=== PATIENT | female | born 1995 | race African-American/Black ===

== ENCOUNTER 2024-08-19 08:42 | Outpatient (RCR) | payer BC, SELFPAY ==
[2024-08-19 09:34] VITALS: BP 119/80; PULSE 86
== END 2024-09-15 09:32 | disposition home or self-care (01) ==
LOC: ANHOBOP 08:42
PROVIDERS: PCP Family Medicine; Visit Provider Obstetrics & Gynecology
DX: O26.899 Other specified pregnancy related conditions, unspecified trimester (principal); Z3A.00 Weeks of gestation of pregnancy not specified
CPT/HCPCS: 59025

== ENCOUNTER 2024-09-13 11:31 | Inpatient (IN) | payer BC, SELFPAY ==
[2024-09-13] VITALS (142 sets, daily range): BP systolic 93–169; BP diastolic 46–124; PULSE 78–132; TEMP 36.6–37; O2SAT 94–100; BMI 33.2
--- OUTSIDE RECORDS SUMMARY | 2024-09-13 11:35 | XMS_ITS | Clinical Summary ---
Author Organization [facility] Address [address] [place] [address] Phone Care Team Providers Care Trousseau Consultant Name Role Phone Unavailable Primary Care Provider Unavailabl e Active Problems Problem Noted Date Diagnosed Date Microcephaly of fetus 08/11/2024 Comments Yes Encounters Date Type Department Care Team Description 09/07/2024 12:59 PM CDT - 09/07/2024 11:59 PM CDT [facility] [address] [place] [address] [address] [place] [phone] Maura Blue MD Discharge Disposition: Home or Self Care 09/07/2024 12:40 PM CDT - 09/07/2024 11:59 PM CDT Hospital [facility] [address] [place] [address] [place] [phone] Suzan Mcadams MD Discharge Disposition: Home or Self Care 08/25/2024 10:05 AM CDT - 08/25/2024 11:59 PM CDT Hospital Encounter [facility] [address] [place] [address] [address] [place] [phone] Juliano Cortez MD Discharge Disposition: Home or Self Care 08/25/2024 10:00 AM CDT - 08/25/2024 11:59 PM CDT Hospital Encounter [facility] [address] [place] [address] [address] [place] [address] Juliano Cortez MD Discharge Disposition: Home or Self Care 08/16/2024 External Device Data STL ABSTRACTION Provider, Abstract 08/11/2024 1:45 PM CDT Initial [facility] [address] [place] [phone] Juliano Cortez MD Microcephaly of fetus (Primary Dx) 08/11/2024 12:45 PM CDT - 08/11/2024 11:59 PM CDT Hospital Encounter [facility] Maternal and Ground Floor [address] [phone] Jersey Souza MD Discharge Disposition: Home or Self Care 08/10/2024 Orders Only [facility] [address] [place] [phone] Jersey Souza MD Poor growth affecting management of mother in third trimester, fetus 1 of multiple gestation (Primary Dx) 06/14/2024 External Device Data STL ABSTRACTION Provider, Abstract 06/14/2024 External Device Data STL ABSTRACTION Provider, Abstract 06/14/2024 External Device Data STL ABSTRACTION Provider, Abstract from Last 3 Months Social History Tobacco Use Types Packs/Day Years Used Date Smoking Tobacco: Never Assessed Comments Yes Sex and Gender Information Value Date Recorded Sex Assigned at Not on file Legal Sex Female 1:04 PM CDT Gender Identity Female 06/02/2024 8:52 PM CDT Sexual Orientation Not on file Last Filed Vital Signs Vital Sign Reading Time Taken Comments Blood Pressure 129/88 08/11/2024 1:42 PM CDT Pul se: 88 Pulse - - Temperature - - Respiratory Rate - - Oxygen Saturation - - Inhaled Oxygen Concentration - - Weight 81.6 kg (180 lb) 08/11/2024 1:42 PM CDT Height 160 cm (5' 3) 08/11/2024 1:42 PM CDT Body Mass Index 31.89 08/11/2024 1:42 PM CDT Plan of Treatment Health Maintenance Due Date Last Done Comments HPV VACCINES (1 - 3-dose series) 11/06/2010 DTAP/TDAP/TD VACCINES (1 - Tdap) 11/06/2014 HEPATITIS B VACCINES (1 of 3 - 19+ 3-dose series) 10/18 CERVICAL CANCER SCREENING 11/06/2016 HPV/Cotest (21-29) 11/06/2016 PAP SMEAR 11/06/2016 INFLUENZA VACCINE (#1) 2024 RSV VACCINE (60+ or ) (1 - 1-dose 75+ series) 11/06/2070 Procedures Procedure Name Priority Date/Time Associated Diagnosis Comments US MONITORING NST Routine 09/07/2024 2:03 PM CDT IUGR (intrauterine growth restriction) affecting care of mother, third trimester, fetus 1 US OB FOLLOW UP PER FETUS Routine 09/07/2024 1:02 PM CDT In vitro fertilization Small for dates affecting management of mother, third trimester, not applicable or unspecified fetus US OB FOLLOW UP PER FETUS Routine 08/25/2024 11:23 AM CDT IUGR (intrauterine growth restriction) affecting care of mother, third trimester, fetus 1 US MONITORING NST Routine 08/25/2024 11:10 AM CDT IUGR (intrauterine growth restriction) affecting care of mother, third trimester, fetus 1 US OB DETAIL SINGLE GEST Routine 08/11/2024 1:32 PM CDT IUGR (intrauterine growth restriction) affecting care of mother, third trimester, fetus 1 from Last 3 Months Results * US MONITORING NST (09/07/2024 2:03 PM CDT) Only the most recent of2 resultswithin the time period is included. Anatomical Region Laterality Modality Ultrasound 09/07/2024 1:13 PM CDT [facility] 09/07/2024 1:59 PM CDT [facility] NST ----- Pat. Name: CHERYL PRITCHETT Study Date: 09/07/2024 1:13pm Pat. 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 Para 0 MATERNAL ASSESSMENT ----- Physical Exam Initial weight 82 kg, 181 lb. Initial BMI 32.06 kg/m . Blood pressure 134/82 mmHg. Heart rate 79 bpm METHOD ----- EFM ----- Mosquera . Number of fetuses: 1 DATING ----- GA by prior assessment 37 w + 6 d NAT by prior assessment: 09/22/2024 Method of dating: Restore dating from previous exam Assigned: based on stated NAT, selected on 06/07/2024 Assigned GA 37 w + 6 d Assigned NAT: 09/22/2024 NON STRESS TEST ----- NST interpretation: reactive. Test duration 23 min. Baseline FHR 140 bpm. Baseline variability: moderate. Accelerations: Present. Decelerations: Not present. Uterine activity: present, irregular COMMENT ----- Nursing notes: Patient reports positive movement with no bleeding, leaking. Patient states that she has been feeling contractions, but not frequent enough to come in for evaluation. Patient knows to go to local hospital if she were to experience an increase in intensity or frequency of contractions. Add on with Follow up and umbilical dopplers. Patient usually has her NST done at her OB office. IMPRESSION ----- testing @ 37w 6d for FGR. -The NST is reactive. -Amniotic fluid indices are within normal limits. -Reassuring testing. Continue twice weekly testing. Delivery can be accomplished at 38-39 weeks. Thank you for allowing us to participate in the care of your patient. Procedure Note Maura Blue MD - 09/07/2024 [facility] NST ----- Pat. Name:CHERYL PRITCHETTElsaerin Date:09/07/2024 1:13pm Pat. NO: [id number] MD:JERSEY SOUZA MD [facility]1995Age:28 ----- INDICATION ----- IVF Resulting from Assistive Reproductive Technique Intrauterine Growth Restriction (IUGR) CODING ----- Diagnoses Z3A.37: Weeks of gestation O09.813: Supervision of resulting fromassisted reproductive technology Z3A.37: Weeks of gestation O36.5930: Maternal care for other known orsuspected poor growth O09.813: Supervision of resulting fromassisted reproductive technology Procedures 40020: NST/ monitoring HISTORY ----- OB History 1. Para 0 MATERNAL ASSESSMENT ----- Physical Exam Initial weight 82 kg, 181 lb. Initial BMI 32.06kg/m . Blood pressure 134/82 mmHg. Heart rate 79 bpm METHOD ----- EFM ----- Mosquera . Number of fetuses: 1 DATING ----- GA by prior [id number] w + 6 d NAT by prior assessment:09/22/2024 Method of dating:Restore dating from previous exam Assigned:based on stated NAT, selected on 06/07/2024 Assigned GA37 w + 6 d Assigned NAT:09/22/2024 NON STRESS TEST ----- NST interpretation: reactive. Test duration 23 min. Baseline FHR 140 bpm.Baseline variability: moderate. Accelerations: Present. Decelerations: Not present. Uterine activity: present, irregular COMMENT ----- Nursing notes: Patient reports positive movement with no bleeding,leaking. Patient states that she has been feeling contractions, but not frequent enough to come in for evaluation. Patientknows to go to local hospital if she were to experience an increase in intensity or frequency of contractions. Add on with Followup and umbilical dopplers. Patient usually has her NST done at her OB office. IMPRESSION ----- testing @ 37w 6d for FGR. -The NST is reactive. -Amniotic fluid indices are within normal limits. -Reassuring testing. Continue twice weekly testing. Delivery can be accomplished at 38-39 weeks. Thank you for allowing us to participate in the care of your patient. us Maura Blue MD US ORDERABLES Final Result * US OB FOLLOW UP PER FETUS (09/07/2024 1:02 PM CDT) Only the most recent of2 resultswithin the time period is included. Anatomical Region Laterality Modality Pelvis Ultrasound 09/07/2024 12:4 4 PM CDT Narrative 09/07/2024 1:39 PM CDT STL FOLLOW UP ----- Pat. Name: CHERYL PRITCHETT Study Date: 09/07/2024 12:44pm Pat. NO: [id number] Referring MD: JERSEY SOUZA MD Site: [facility] [employer]ining [employer] Operator: Rena Otoole RDMS : 1995 Age: 28 ----- INDICATION ----- IVF Resulting from Assistive Reproductive Technique Suspected Poor Growth (IUGR) CODING ----- Diagnoses Z3A.37: Weeks of gestation O09.813: Supervision of resulting from assisted reproductive technology Procedures 75354: Ultrasound, uterus, real time with image documentation, follow up, transabdominal approach per fetus 76109: Doppler velocimetry, ; umbilical artery HISTORY ----- OB History 1. Para 0 MATERNAL ASSESSMENT ----- Physical Exam Weight 82 kg. Initial weight 82 kg, 181 lb. BMI 31.89 kg/m . Initial BMI 32.06 kg/m . Weight gain 0 kg, -1 lb METHOD ----- Transabdominal ultrasound examination ----- Mosquera . Number of fetuses: 1 DATING ----- GA by prior assessment 37 w + 6 d NAT by prior assessment: 09/22/2024 Ultrasound examination on: 09/07/2024 GA by U/S based upon: AC, BPD, EFW, Femur, HC GA by U/S 34 w + 3 d NAT by U/S: 10/16/2024 Method of dating: Restore dating from previous exam Assigned: based on stated NAT, selected on 06/07/2024 Assigned GA 37 w + 6 d Assigned NAT: 09/22/2024 BIOMETRY ----- BPD 85.4 mm 34w 3d 2% Hadlock HC 299.1 mm 33w 1d <1% Hadlock AC 316.9 mm 35w 4d 11% Hadlock Femur 66.2 mm 34w 1d <1% Hadlock HC / AC 0.94 17% Nicolaides Weight Calculation: EFW 2,523 g 34w 5d 5% Hadlock EFW (lb,oz) 5 lb 9 oz EFW by Hadlock ([id number]) Extremities / Bony Struc Biometry: FL / BPD 0.78 FL / HC 0.22 FL / AC 0.21 GENERAL EVALUATION ----- Cardiac activity present. FHR 141 bpm. movements: present. Presentation: cephalic Placenta: Placental site: posterior, left Umbilical cord: Cord vessels: 3 vessel cord. Insertion site: placental insertion: normal Amniotic fluid: Amount of AF: normal amount. MVP 4.4 cm. AMARIS 14.7 cm. Q1 4.0 cm, Q2 2.7 cm, Q3 3.6 cm, Q4 4.4 cm ANATOMY ----- The following structures appear normal: Head / Neck Cranium. Heart / Thorax Diaphragm. Abdomen Stomach. Kidneys. Bladder. sex: female. GROWTH OVERVIEW ----- Exam date GA BPD (mm) HC (mm) AC (mm) FL (mm) HL (mm) EFW (g) 06/07/2024 24w 5d 57.5 10% 220.6 12% 199.7 38% 41.6 9% 662 18% 08/11/2024 34w 0d 78.2 2% 283.4 <1% 290.0 25% 63.1 11% 53.9 5% 1,998 11% 08/25/2024 36w 0d 80.9 <1% 290.1 <1% 314.9 43% 63.4 <1% 2,335 10% 09/07/2024 37w 6d 85.4 2% 299.1 <1% 316.9 11% 66.2 <1% 2,523 5% COMMENT ----- Patient's name and date of were verified by the forger helper prior to the exam IMPRESSION ----- Mosquera @ 37w 6d complicated by FGR and suspected microcephaly. - The biometry continues to LAG dates with the EFW at the 5% percentile, though there has been interval growth. - Amniotic fluid indices are within normal limits. - Limited anatomy is unremarkable. - The umbilical artery Doppler velocimetry is within normal limits. The patient had an NST following the ultrasound; please see separate report for details. Delivery can be accomplished at 38-39 weeks. Thank you for allowing us to participate in the care of this patient. Procedure Note Maura Blue MD - 09/07/2024 STL FOLLOW UP ----- Pat. Name:Amanda PRITCHETT Date:09/07/2024 12:44pm Pat. NO: [id number] MD:JERSEY SOUZA MD [facility]Rena Otoole RDMS :1995Age:28 ----- INDICATION ----- IVF Resulting from Assistive Reproductive Technique Suspected Poor Growth (IUGR) CODING ----- Diagnoses Z3A.37: Weeks of gestation O09.813: Supervision of resulting fromassPurchasing Platform reproductive technology Procedures 30107: Ultrasound, uterus, real time withimage documentation, follow up, transabdominal approach per fetus 84841: Doppler velocimetry, ; umbilicalartery HISTORY ----- OB History 1. Para 0 MATERNAL ASSESSMENT ----- Physical Exam Weight 82 kg. Initial weight 82 kg, 181 lb. BMI31.89 kg/m . Initial BMI 32.06 kg/m . Weight gain 0 kg, -1 lb METHOD ----- Transabdominal ultrasound examination ----- Mosquera . Number of fetuses: 1 DATING ----- GA by prior [id number] w + 6 d NAT by prior assessment:09/22/2024 Ultrasound examination on:09/07/2024 GA by U/S based upon:AC, BPD, EFW, Femur, HC GA by U/S34 w + 3 d NAT by U/S:10/16/2024 Method of dating:Restore dating from previous exam Assigned:based on stated NAT, selected on 06/07/2024 Assigned GA37 w + 6 d Assigned NAT:09/22/2024 BIOMETRY ----- BPD 85.4 mm 34w 3d 2%Hadlock HC 299.1 mm 33w 1d <1%Hadlock AC 316.9 mm 35w 4d 11%Hadlock Femur 66.2 mm 34w 1d <1%Hadlock HC / AC 0.94 17%Nicolaides Weight Calculation: EFW 2,523 g 34w 5d5% Hadlock EFW (lb,oz) 5 lb 9 oz EFW by Hadlock ([id number]) Extremities / Bony Struc Biometry: FL / BPD 0.78 FL / HC 0.22 FL / AC 0.21 GENERAL EVALUATION ----- Cardiac activity present. FHR 141 bpm. movements: present.Presentation: cephalic Placenta: Placental site: posterior, left Umbilical cord: Cord vessels: 3 vessel cord. Insertion site: placentalinsertion: normal Amniotic fluid: Amount of AF: normal amount. MVP 4.4 cm. AMARIS 14.7 cm. Q14.0 cm, Q2 2.7 cm, Q3 3.6 cm, Q4 4.4 cm ANATOMY ----- The following structures appear normal: Head / Neck Cranium. Heart / Thorax Diaphragm. Abdomen Stomach. Kidneys. Bladder. sex: female. GROWTH OVERVIEW ----- Exam date GA BPD (mm) HC (mm) AC (mm) FL(mm) HL (mm) EFW (g) 06/07/2024 24w 5d 57.5 10% 220.6 12% 199.7 38%41.6 9% 662 18% 08/11/2024 34w 0d 78.2 2% 283.4 <1% 290.0 25%63.1 11% 53.9 5% 1,998 11% 08/25/2024 36w 0d 80.9 <1% 290.1 <1% 314.9 43%63.4 <1% 2,335 10% 09/07/2024 37w 6d 85.4 2% 299.1 <1% 316.9 11%66.2 <1% 2,523 5% COMMENT ----- Patient's name and date of were verified by the forger helper prior tothe exam IMPRESSION ----- Mosquera @ 37w 6d complicated by FGR and suspectedmicrocephaly. - The biometry continues to LAG dates with the EFW at the 5%percentile, though there has been interval growth. - Amniotic fluid indices are within normal limits. - Limited anatomy is unremarkable. - The umbilical artery Doppler velocimetry is within normal limits. The patient had an NST following the ultrasound; please see separatereport for details. Delivery can be accomplished at 38-39 weeks. Thank you for allowing us to participate in the care of this patient. us Suzan Mcadams MD US ORDERABLES Edited Resu lt - Final * US OB DETAIL SINGLE GEST (08/11/2024 1:32 PM CDT) Anatomical Region Laterality Modality Pelvis Ultrasound 08/11/2024 12:5 2 PM CDT Narrative 08/11/2024 2:13 PM CDT STL COMP ----- Pat. Name: CHERYL PRITCHETT Study Date: 08/11/2024 12:52pm Pat. NO: [id number] Referring MD: JERSEY SOUZA MD Site: [facility] [employer] Operator: Johnna Kauffman RDMS : 1995 Age: 28 ----- INDICATION ----- IVF Resulting from Assistive Reproductive Technique Intrauterine Growth Restriction (IUGR) CODING ----- Diagnoses Z3A.34: Weeks of gestation O09.813: Supervision of resulting from assisted reproductive technology Z3A.34: Weeks of gestation O36.5930: Maternal care for other known or suspected poor growth O09.813: Supervision of resulting from assisted reproductive technology Procedures 53243: Ultrasound, uterus, real time with image documentation, and maternal evaluation plus detailed anatomic examination, transabdominal approach HISTORY ----- OB History 1. Para 0 MATERNAL ASSESSMENT ----- Physical Exam Initial weight 82 kg, 181 lb. Initial BMI 32.06 kg/m METHOD ----- Transabdominal ultrasound examination ----- Mosquera . Number of fetuses: 1 DATING ----- GA by prior assessment 34 w + 0 d NAT by prior assessment: 09/22/2024 Ultrasound examination on: 08/11/2024 GA by U/S based upon: AC, BPD, EFW, Femur, HC GA by U/S 32 w + 0 d NAT by U/S: 10/06/2024 Method of dating: Restore dating from previous exam Assigned: based on stated NAT, selected on 06/07/2024 Assigned GA 34 w + 0 d Assigned NAT: 09/22/2024 BIOMETRY ----- BPD 78.2 mm 31w 3d 2% Hadlock HC 283.4 mm 31w 1d <1% Hadlock AC 290.0 mm 33w 0d 25% Hadlock Femur 63.1 mm 32w 4d 11% Hadlock Humerus 53.9 mm 31w 3d 5% Charmaine HC / AC 0.98 17% Nicolaides Weight Calculation: EFW 1,998 g 32w 1d 11% Hadlock EFW (lb,oz) 4 lb 6 oz EFW by Hadlock ([id number]) Extremities / Bony Struc Biometry: FL / BPD 0.81 FL / HC 0.22 FL / AC 0.22 GENERAL EVALUATION ----- Cardiac activity present. FHR 153 bpm. movements: present. Presentation: cephalic Placenta: Placental site: posterior Umbilical cord: Cord vessels: 3 vessel cord. Insertion site: placental insertion: normal Amniotic fluid: Amount of AF: normal amount. MVP 4.8 cm. AMARIS 15.8 cm. Q1 4.8 cm, Q2 4.3 cm, Q3 3.0 cm, Q4 3.7 cm ANATOMY ----- Head / Neck Lateral ventricles: previously seen. Cerebellum: previously seen. Cisterna magna: previously seen. Face Profile: previously seen. Heart / Thorax RVOT view: previously seen. LVOT view: previously seen. The following structures appear normal: Head / Neck Cranium. Choroid plexus. Midline falx. Cavum septi pellucidi. Thalami. Face Lips. Nose. Orbits. Heart / Thorax 4-chamber view. 3-vessel view. 7-hhmcqf-irezmqn view. Situs. Aortic arch view. Ductal arch view. Superior vena cava. Inferior vena cava. Cardiac rhythm. Diaphragm. Abdomen Abdominal wall. Stomach. Kidneys. Bladder. Extremities / Arms. Legs. Skeleton The following structures could not be adequately visualized: Face Palate. Spine Cervical spine. Thoracic spine. Lumbar spine. Sacral spine. Extremities / Hands. Feet. Skeleton sex: female. DOPPLER ----- Umbilical Artery: PI 0.82 39% Veronica RI 0.57 39% Veronica PS 53.11 cm/s 68% Ebbing ED 22.45 cm/s TAmax 37.31 cm/s 75% Ebbing MD 22.02 cm/s S / D 2.34 35% Veronica Impression: Performed but not charged. GROWTH OVERVIEW ----- Exam date GA BPD (mm) HC (mm) AC (mm) FL (mm) HL (mm) EFW (g) 06/07/2024 24w 5d 57.5 10% 220.6 12% 199.7 38% 41.6 9% 662 18% 08/11/2024 34w 0d 78.2 2% 283.4 <1% 290.0 25% 63.1 11% 53.9 5% 1,998 11% COMMENT ----- Patient's name and date of were verified by the forger helper before the exam IMPRESSION ----- Viable at 34 weeks 0 days gestation complicated by IVF and maternal obesity. Patient had low risk NIPT. Ultrasound and care consult requested due to poor growth Cephalic presentation biometry is consistent low normal growth Estimated weight is at the 11th percentile with abdominal circumference at 25th percentile Head circumference is measuring less than the 1st percentile; Z-score is between -2 to -3 SD No structural malformations identified within the limitations of the late ultrasound Intracranial anatomy appears normal Amniotic fluid volume is normal Posterior placenta with normal placental cord insertion appreciated; placenta is not low-lying Normal umbilical artery Doppler studies Ultrasound findings discussed with the patient and her partner. We discussed the growth is in the low normal range. Head circumference is at the lower end of the expected range. Given normal intracranial anatomy this is likely a normal variant. Discussed limitations of late ultrasound. Please see consult note. Recommendations: - Start twice-weekly modified biophysical profiles. Patient is currently doing testing at her OB provider's office - Follow-up ultrasound with nonstress test scheduled in 2 weeks - Based upon current ultrasound findings, delivery is recommended between 39 to 40 weeks gestation ADDENDUM ----- RETRIGGER Procedure Note Juliano Cortez MD - 08/11/2024 ST[facility] COMP ----- Pat. Name:CHERYL PRITCHETTStudy Date:08/11/2024 12:52pm Pat. NO: [id number] MD:JERSEY SOUZA MD [facility]Johnna Kauffman RDMS :1995Age:28 ----- INDICATION ----- IVF Resulting from Assistive Reproductive Technique Intrauterine Growth Restriction (IUGR) CODING ----- Diagnoses Z3A.34: Weeks of gestation O09.813: Supervision of resulting fromassisted reproductive technology Z3A.34: Weeks of gestation O36.5930: Maternal care for other known orsuspected poor growth O09.813: Supervision of resulting fromassisted reproductive technology Procedures [id number]: Ultrasound, uterus, real time withimage documentation, and maternal evaluation plus detailed anatomic examination,transabdominal approach HISTORY ----- OB History 1. Para 0 MATERNAL ASSESSMENT ----- Physical Exam Initial weight 82 kg, 181 lb. Initial BMI 32.06kg/m METHOD ----- Transabdominal ultrasound examination ----- Mosquera . Number of fetuses: 1 DATING ----- GA by prior [id number] w + 0 d NAT by prior assessment:09/22/2024 Ultrasound examination on:08/11/2024 GA by U/S based upon:AC, BPD, EFW, Femur, HC GA by /2 w + 0 d NAT by U/S:10/06/2024 Method of dating:Restore dating from previous exam Assigned:based on stated NAT, selected on 06/07/2024 Assigned GA34 w + 0 d Assigned NAT:09/22/2024 BIOMETRY ----- BPD 78.2 mm 31w 3d2% Hadlock HC 283.4 mm 31w 1d<1% Hadlock AC 290.0 mm 33w 0d25% Hadlock Femur 63.1 mm 32w 4d11% Hadlock Humerus 53.9 mm 31w 3d5% Charmaine HC / AC 0.98 17%Nicolaides Weight Calculation: EFW 1,998 g 32w 1d11% Hadlock EFW (lb,oz) 4 lb 6 oz EFW by Hadlock ([id number]) Extremities / Bony Struc Biometry: FL / BPD 0.81 FL / HC 0.22 FL / AC 0.22 GENERAL EVALUATION ----- Cardiac activity present. FHR 153 bpm. movements: present.Presentation: cephalic Placenta: Placental site: posterior Umbilical cord: Cord vessels: 3 vessel cord. Insertion site: placentalinsertion: normal Amniotic fluid: Amount of AF: normal amount. MVP 4.8 cm. AMARIS 15.8 cm. Q14.8 cm, Q2 4.3 cm, Q3 3.0 cm, Q4 3.7 cm ANATOMY ----- Head / Neck Lateral ventricles: previously seen. Cerebellum:previously seen. Cisterna magna: previously seen. Face Profile: previously seen. Heart / Thorax RVOT view: previously seen. LVOT view: previouslyseen. The following structures appear normal: Head / Neck Cranium. Choroid plexus. Midline falx. Cavum septipellucidi. Thalami. Face Lips. Nose. Orbits. Heart / Thorax 4-chamber view. 3-vessel view. 7-lsltxa-ixrzzpontmb. Situs. Aortic arch view. Ductal arch view. Superior vena cava. Inferior vena cava. Cardiac rhythm. Diaphragm. Abdomen Abdominal wall. Stomach. Kidneys. Bladder. Extremities / Arms. Legs. Skeleton The following structures could not be adequately visualized: Face Palate. Spine Cervical spine. Thoracic spine. Lumbar spine.Sacral spine. Extremities / Hands. Feet. Skeleton sex: female. DOPPLER ----- Umbilical Artery: PI 0.82 39%Vernoica RI 0.57 39%Veronica PS 53.11 cm/s 68%Ebbing ED 22.45 cm/s TAmax 37.31 cm/s 75%Ebbing MD 22.02 cm/s S / D 2.34 35%Veronica Impression: Performed but not charged. GROWTH OVERVIEW ----- Exam date GA BPD (mm) HC (mm) AC (mm) FL(mm) HL (mm) EFW (g) 06/07/2024 24w 5d 57.5 10% 220.6 12% 199.7 38%41.6 9% 662 18% 08/11/2024 34w 0d 78.2 2% 283.4 <1% 290.0 25%63.1 11% 53.9 5% 1,998 11% COMMENT ----- Patient's name and date of were verified by the forger helper beforethe exam IMPRESSION ----- Viable at 34 weeks 0 days gestation complicated by IVF andmaternal obesity. Patient had low risk NIPT. Ultrasound and care consult requested due to poor growth Cephalic presentation biometry is consistent low normal growth Estimated weight is at the 11th percentile with abdominalcircumference at 25th percentile Head circumference is measuring less than the 1st percentile; Z-score isbetween -2 to -3 SD No structural malformations identified within the limitations of the lateultrasound Intracranial anatomy appears normal Amniotic fluid volume is normal Posterior placenta with normal placental cord insertion appreciated;placenta is not low-lying Normal umbilical artery Doppler studies Ultrasound findings discussed with the patient and her partner. Wediscussed the growth is in the low normal range. Head circumference is at the lower end of the expected range. Given normalintracranial anatomy this is likely a normal variant. Discussed limitations of late ultrasound. Please see consult note. Recommendations: - Start twice-weekly modified biophysical profiles. Patient is currentlydoing testing at her OB provider's office - Follow-up ultrasound with nonstress test scheduled in 2 weeks - Based upon current ultrasound findings, delivery is recommended [id number] to 40 weeks gestation ADDENDUM ----- RETRIGGER Jersey Souza MD ORDERABLES Edited Result - Final from Last 3 Months Insurance [facility] BLUE ACCESS CHOICE [facility]
--- OUTSIDE RECORDS SUMMARY | 2024-09-13 11:35 | XMS_ITS | Continuity of Care Document ---
Author Organization [facility], [facility] Address [address] [place] [address] [place] [address] Care Team Providers Care Field Producer Name Role Phone NATHALIE RIVERA Primary Care Provider Assessment No assessment recorded. Plan of Treatment Reminders Order Date Submit Date Provider Last Modified By Organization Details Last Modified Time Details Appointments NST 2024 08:30A M NST SCHEDULE Not available Not available Not available INDUCTI ON 2024 04:00P M JERSEY SOUZA MD Not available Not available Not available U/S OB BPP 2024 08:30A M ULTRASOUND Not available Not available Not available NST 2024 09:00A M NST SCHEDULE Not available Not available Not available OB ROUTINE 2024 09:45A M JERSEY SOUZA MD Not available Not available Not available Lab None recorde d. Referral None recorde d. Procedures None recorde d. Surgeries None recorde d. Imaging non-str ess test 2024 025 [id number] [place], [address], [place], [address], 09/13/2024 11:59:58 Medication Orders None recorde d. Patient TargetsNo targets recorded. Patient InstructionsNo instructions recorded. Reason for Referral None Reported. Results Created Date Observation Date Name Description Value Unit Range Abnormal Flag Note LastModifiedBy Organization Detail LastModifiedTime 03/17/19 25 03/17/2024 [UNIT Y] ANEUP LOIDY NIPT fraction 14.3% normal Not Available [facility] [address] [facility], [place], [address], 03/17/2024 00:01:59 03/17/19 25 03/17/2024 [UNIT Y] ANEUP LOIDY NIPT 22Q11.2 microdeletio n LOW RISK <1 in 10,000 normal Not Available [facility] [address] [facility], [place], [address], 03/17/2024 00:01:59 03/17/19 25 03/17/2024 [UNIT Y] ANEUP LOIDY NIPT sex chromosome aneuploidy NOT DETECT ED normal Not Available [facility] [address] [facility], [place], [address], 03/17/2024 00:01:59 03/17/19 25 03/17/2024 [UNIT Y] ANEUP LOIDY NIPT monosomy X LOW RISK <1 in 10,000 normal Not Available [facility] [address] [facility], [place], [address], 03/17/2024 00:01:59 03/17/19 25 03/17/2024 [UNIT Y] ANEUP LOIDY NIPT trisomy 13 LOW RISK <1 in 10,000 normal Not Available [facility] [address] [place], [address], 03/17/2024 00:01:59 03/17/19 25 03/17/2024 [UNIT Y] ANEUP LOIDY NIPT trisomy 18 LOW RISK <1 in 10,000 normal Not Available [facility] [address] [place], [address], 03/17/2024 00:01:59 03/17/19 25 03/17/2024 [UNIT Y] ANEUP LOIDY NIPT trisomy 21 LOW RISK <1 in 10,000 normal Not Available [facility] [address] [place], [address], 03/17/2024 00:01:59 03/17/19 25 03/17/2024 [UNIT Y] ANEUP LOIDY NIPT sex FEMALE normal Not Available [facility] [address], [place], [address], 03/17/2024 00:01:59 03/17/19 25 03/17/2024 [UNIT Y] ANEUP LOIDY NIPT gestation SINGLE TON normal Not Available [facility] [address], [place], [address], 03/17/2024 00:01:59 03/17/19 25 03/17/2024 [UNIT Y] ANEUP LOIDY NIPT for detailed report, see pdf See PDF normal Not Available [facility] [address], [place], [address], 03/17/2024 00:01:59 03/29/19 25 03/29/2024 [UNIT Y] PAPITO Damon sickle cell disease/beta -thalassemia /hemoglobino pathies carrier screen NEGATI VE normal Not Available [facility] [address], [place], [address], 03/29/2024 18:43:30 03/29/19 25 03/29/2024 [UNIT Y] PAPITO Damon alpha-thalas semia carrier screen NEGATI VE normal Not Available [facility] [address], [place], [address], 03/29/2024 18:43:30 03/29/19 25 03/29/2024 [UNIT Y] PAPITO Damon cystic fibrosis carrier screen NEGATI VE normal Not Available [facility] [address], [place], [address], 03/29/2024 18:43:30 03/29/19 25 03/29/2024 [UNIT Y] PAPITO Damon spinal muscular atrophy carrier screen NEGATI VE 2 SMN1 copies , SNP not presen t normal Not Available [facility] [address], [place], [address], 03/29/2024 18:43:30 03/29/19 25 03/29/2024 [UNIT Y] PAPITO GIO Damon for detailed report, see pdf See PDF normal Not Available [facility] [address], [place], [address], 03/29/2024 18:43:30 07/09/19 25 07/08/2024 HEMAT OCRIT (HCT) HCT 34.2 % (based on docume nted legal sex) 34.0-4 5.0 Not Available [facility] (Lab) [address], [place], [address], 07/09/2024 09:47:08 07/09/19 25 07/08/2024 HEMOG LOBIN (HGB) HGB 11.0 g/dL (based on docume nted legal sex) 11.6-1 5.4 low Not Available [facility] (Lab) [address], [place], [address], 07/09/2024 09:47:09 07/09/19 25 07/08/2024 GTT - GESTA LUIS L ELEONORA Damon, ACOG OB glucose, 1 hour screen 97 mg/dL 70-135 Not Available [facility] (Lab) [address], [place], [address], 07/09/2024 09:47:09 07/09/19 25 07/08/2024 HIV 1/2 ANTIG EN/AN TIBOD Y, REFLE X CONFI RMATI ON HIV antigen/anti body Nonrea ctive nonrea ctive HIV-1 antig en and HIV-1 /HIV- 2 antib odies were not detec cynthia. No labor atory evide nce of HIV infec tion. Not Available [facility] (Lab) [address], [place], [address], 07/09/2024 09:47:10 07/09/19 25 07/08/2024 RPR SCREMohamud N, REFLE X TITER /CONF IRMAT ION RPR qualitative Nonrea ctive nonrea ctive Not Available [facility] (Lab) [address], [place], [address], 07/09/2024 09:47:10 08/23/19 25 08/22/2024 CULTU RE: GROUP B STREP SCREE N, REFLE X SUSCE PTIBI LITY result report SEE RESULT S BELOW Test: Cultu re: Group B Strep , Refle x Susce ptibi lity ([facility]/ [facility]/K [facility] ) Speci men Sourc e: Vagin a/Rec delaney Speci men Type: Vagin al/Re ctal Speci men Date: 025 1048 Resul t Date: 2024 1411 Resul t Statu s: Final resul t Abnor mal: No Resul ting Lab: [facility] [address] [facility] [address] Tel: CULTU RE ----- ----- ----- --- No Group B strep isola cynthia at 2 days (jaylene ctive broth enhan cemen t) Not Available [facility] (Lab) [address], [place], [address], 08/25/2024 15:16:22 05/18/19 25 05/17/2024 US, obste tric, 2nd or 3rd trime ster No observ ation record ed. [facility] [address], [place], [address], 05/17/2024 14:14:14 05/18/19 25 05/17/2024 US, obste tric, 2nd or 3rd trime ster No observ ation record ed. [email or web address] [address], [place], [address], 05/18/2024 00:23:10 06/07/19 25 06/06/2024 US, obste tric, follo w-up No observ ation record ed. [email or web address] [address], [place], [address], 06/15/2024 09:14:42 06/07/19 25 06/06/2024 US, obste tric, follo w-up No observ ation record ed. [facility] [address], [place], [address], 06/06/2024 17:13:39 06/08/19 25 06/07/2024 US, obste tric, follo w-up No observ ation record ed. [facility] [address], [address], 06/22/2024 09:34:19 06/08/19 25 06/07/2024 US, obste tric, follo w-up No observ ation record ed. [email or web address] [place] [address], [address], 07/07/2024 16:10:27 06/08/19 25 06/07/2024 US, obste tric, follo w-up No observ ation record ed. [email or web address], [place], [address], 06/21/2024 09:15:52 07/09/19 25 07/08/2024 US, obste tric, follo w-up No observ ation record ed. [facility] [address], [place], [address], 07/08/2024 14:01:25 07/09/19 25 07/08/2024 US, obste tric, follo w-up No observ ation record ed. [address], [place], [address], 07/14/2024 11:23:30 08/06/19 25 08/05/2024 US, obste tric, follo w-up No observ ation record ed. [address], [place], [address], 09/01/2024 21:40:56 08/06/19 25 08/05/2024 US, obste tric, follo w-up No observ ation record ed. [facility] [address], [place], [address], 08/05/2024 17:29:01 08/06/19 25 08/05/2024 US, obste tric, bioph ysica l profi le + non-s tress test No observ ation record ed. [facility] [address], [place], [address], 08/05/2024 17:29:11 08/06/19 25 08/05/2024 US, doppl er, umbil ical arter y veloc imetr y No observ ation record ed. [facility] [address], [place], [address], 08/05/2024 17:29:20 08/09/19 25 08/05/2024 non-s tress test No observ ation record ed. [email or web address] [place] [address], [place], [address], 08/08/2024 09:38:26 08/09/19 25 08/05/2024 non-s tress test No observ ation record ed. [email or web address] [place] [address], [place], [address], 08/08/2024 11:51:50 08/12/19 25 08/11/2024 US, obste tric, follo w-up No observ ation record ed. [email or web address] [facility] [address] [facility], [place], [address], 08/15/2024 09:25:46 08/12/19 25 08/11/2024 US, obste tric, follo w-up No observ ation record ed. [email or web address] [facility] [address] [facility] [address] , [place], [address], 08/15/2024 09:29:32 08/17/19 25 08/16/2024 US, obste tric, bioph ysica l profi le + non-s tress test No observ ation record ed. [facility] [address], [place], [address], 08/16/2024 18:12:16 08/17/19 25 08/16/2024 US, doppl er, umbil ical arter y veloc imetr y No observ ation record ed. [facility] [address], [place], [address], 08/16/2024 18:12:26 08/17/19 25 08/16/2024 US, obste tric, bioph ysica l profi le + non-s tress test No observ ation record ed. [email or web address] [facility] [address] [facility], [place], [address], 08/17/2024 09:43:52 08/17/19 25 08/16/2024 non-s tress test No observ ation record ed. [email or web address] [place] [address], [place], [address], 08/16/2024 19:10:33 08/20/19 25 08/19/2024 non-s tress test No observ ation record ed. [address], [place], [address], 08/24/2024 07:39:39 08/23/19 25 08/22/2024 non-s tress test No observ ation record ed. [facility] [address], [place], [address], 08/22/2024 13:47:45 08/26/19 25 08/25/2024 US, obste tric, follo w-up No observ ation record ed. [email or web address] [facility] [place] [address] [facility], [place], [address], 08/30/2024 15:25:37 08/31/19 25 08/30/2024 non-s tress test No observ ation record ed. [email or web address] [place] [address], [place], [address], 08/30/2024 12:15:54 09/03/19 25 09/02/2024 US, obste tric, bioph ysica l profi le + non-s tress test No observ ation record ed. [email or web address] [place] [address], [place], [address], 09/02/2024 17:49:19 09/03/19 25 09/02/2024 US, obste tric, bioph ysica l profi le + non-s tress test No observ ation record ed. [email or web address] [address], [place], [address], 09/02/2024 17:25:54 09/03/19 25 09/02/2024 non-s tress test No observ ation record ed. [email or web address] [place] [address], [place], [address], 09/02/2024 11:46:32 09/08/19 25 09/07/2024 US, obste tric, follo w-up No observ ation record ed. [email or web address] [facility] [address] [facility], [place], [address], 09/10/2024 10:59:12 09/08/19 25 09/07/2024 US, obste tric, follo w-up No observ ation record ed. [facility] [address] [facility], [place], [address], 09/10/2024 10:58:58 09/10/19 25 09/09/2024 US, obste tric, bioph ysica l profi le + non-s tress test No observ ation record ed. [email or web address] [place] [address], [place], [address], 09/09/2024 10:09:05 09/10/19 25 09/09/2024 US, doppl er, umbil ical arter y veloc imetr y No observ ation record ed. [email or web address] [place] [address], [place], [address], 09/09/2024 10:09:18 09/10/19 25 09/09/2024 US, obste tric, bioph ysica l profi le + non-s tress test No observ ation record ed. [email or web address] [address] [facility], [place], [address], 09/09/2024 11:45:39 09/10/19 25 09/09/2024 non-s tress test No observ ation record ed. [email or web address] [place] [address], [place], [address], 09/09/2024 11:11:12 09/14/19 25 09/13/2024 non-s tress test No observ ation record ed. [place] [address], [place], [address], 09/13/2024 11:39:39 09/14/19 non-s tress test No observ ation record ed. [email or web address] [place] [address] [place], [address], 09/13/2024 11:43:17 Result Notes None recorded. Problems Name Problem SNOMED Code Status Onset Date Resolution Date Notes Provider Name and Address Organization Details Recorded Time IVF - in-vitro fertiliz ation pregnanc y 22056186081 102 Active echo order faxed to [facility] 4/4 echo wnl antenata l testing to start at 36wks Nataly Barry [facility] 5 11:22:56 IVF - in-vitro fertiliz ation pregnanc y 91017632534 102 Active echo order faxed to [facility] 4/4 echo wnl antenata l testing to start at 36wks Nataly Barry [facility] 5 11:22:56 Jocelyn keys [id number] Completed 201610/10/2020 Jocelyn keys;Record ed Elsewher e: No Locat ion: [facility] S ource: EHR Emergency Medical Technician yang: N Practi ce ID: [id number] Padilla lable Time: 03:30:00 PM Angela Hodges [facility] 09:52:28 Finding of regulari ty of menstrua l cycle Completed 201610/10/2020 Irregula r bleeding ;Recorde d Elsewher e: No Locat ion: [facility] S ource: EHR Emergency Medical Technician yang: N Practi ce ID: [id number] Padilla lable Time: 02:45:00 PM Angela Hodges [facility] 09:52:25 Uses combined oral contrace ption 194935327 Completed 201610/10/2020 Encounte r for surveill ance of contrace ptive pills;Pr actice ID: [id number] Angela Hodges [facility] 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 09:52:34 Finding of general energy 450454122 Completed 201710/10/2020 Other fatigue; Recorded Elsewher e: No Locat ion: Tamiswapnil [facility] Beckieti ce ID: [id number] Padilla lable Time: 08:30:00 AM Angela barron, [facility] 09:52:22 Screenin g for malignan t neoplasm of cervix Completed 201710/10/2020 Screenin g for malignan t neoplasm s of the cervix;R ecorded Elsewher e: No Locat ion: Susy [facility] yang: N Beckieti ce ID: 0001 Padilla lable Time: 08:30:00 AM Angela barron, [facility] 09:52:30 Body mass index 25-29 - overweig [id number] Completed 201710/10/2020 Body mass index (BMI) 27.0-27. 9, adult;Re corded Elsewher e: No Locat ion: Susy [facility] S ource: EHR Emergency Medical Technician yang: N Beckieti ce ID: [id number] Padilla lable Time: 08:30:00 AM Angela barron [facility] 09:52:[address] Concept Completed 201810/10/2020 Encntr for routine child health exam w/o abnormal findings ;Recorde d Elsewher e: No Locat ion: Susy [facility] S ource: EHR Emergency Medical Technician yang: N Beckieti ce ID: 0001 Padilla lable Time: 11:30:00 AM Angela barron [facility] 1 09:52:32 Pregnanc y 81524955 Active 2024 Trinhsofia Simons beatrice, [facility] 5 16:44:48 Placenta circumva llata 6210324 Active 2024 32wk growth Nataly Barry beatrice [facility] 5 17:57:31 Venous garces 093724108 Active 2024 Nataly barron, [facility] 5 17:57:40 Disorder of pregnanc y 334892737 Active 2024 IUGR MFM referral faxed to Cheyanne Edward [facility] Growth/B PP/NST Consult 08/11/24 Nataly Barry beatrice [facility] 5 09:41:57 growth restrict ion 59648734 Active 2024 EFW 6% at 38 weeks, 38-39 week inductio n per MFM schedule d for inductio n 09/15 PM Nataly Barry [facility] 5 11:34:58 Problem Notes None recorded. Procedures Surgical History Date Name Laterality Status Provider Name and Address Organization Details Recorded Time 4 [facility] 10:50:46 4 [facility]/08[facility]2024 10:50:26 4 Date of Last Pap Smear completed Cecilia Hutchinson [facility] 02/26/2024 12:31:47 1 extraction of wisdom tooth completed Angela [facility] 07/22/2024 11:59:14 6 excision of ganglion cyst completed Angela [facility] 10/04/2019 11:44:42 5 excision of ganglion cyst completed Agnela Hodges [facility] 10/04/2019 11:44:39 Imaging Results None recorded. Procedure Notes None recorded. Medical Equipment None Reported. Allergies No known drug allergies Medications Name Sig Start Date Stop Date Status Note LastModified by Organization Details LastModified Time amoxicill in 500 mg capsule 10/10 completed Not Available Not Available Not Available medroxypr ogesteron e 10 mg tablet TAKE 1 TABLET BY MOUTH EVERY DAY FOR 10 DAYS 02/25 completed Not Available Not Available Not Available azithromy elle 250 mg tablet 02/25 completed Not Available Not Available Not Available hydrocodo ne 5 mg-acetam inophen 325 mg tablet 10/10 completed Not Available Not Available Not Available metronida zole 0.75 % (37.5 mg/5 gram) vaginal gel Insert 1 applicat orful every day by vaginal route for 5 days. 06/20 completed Not Available Not Available Not Available Pregnyl 10,000 unit intramusc ular solution 02/25 completed Not Available Not Available Not Available progester one 50 mg/mL intramusc ular oil 02/25 completed Not Available Not Available Not Available progester one micronize d 200 mg capsule TAKE ONE CAPSULE BY MOUTH TWICE DAILY DIRECTED 02/25 completed Not Available Not Available Not Available estradiol 2 mg tablet TAKE 1 TABLET BY MOUTH THREE TIMES DAILY 02/25 completed Not Available Not Available Not Available hydroxyzi ne HCl 25 mg tablet TAKE 1 TABLET BY MOUTH THREE TIMES DAILY NEEDED FOR ANXIETY OR SLEEP active Not Available Not Available No t Available ergocalci ferol (vitamin D2) 1,250 mcg (50,000 unit) capsule TAKE 1 CAPSULE BY MOUTH WEEKLY FOR 12 WEEKS. HAVE BLOOD WORK REPEATED . 11/14 completed Not Available Not Available Not Available letrozole 2.5 mg tablet Take 2 tablets every day by oral route for 5 days. 02/25 completed Not Available Not Available Not Available scopolami ne 1 mg over 3 days transderm al patch APPLY 1 PATCH EVERY 72 HOURS FOR EXCESSIV E SALIVATI ON 07/08 completed Not Available Not Available Not Available ondansetr on 4 mg disintegr ating tablet DISSOLVE 1 TABLET ON TOP OF THE TONGUE FOUR TIMES DAILY DIRECTED 07/08 completed Not Available Not Available Not Available metformin ER 500 mg tablet,ex tended release 24 hr Take 1 tablet every day by oral route. 2024 active Not Available Not Available Not Avai lable leuprolid e 1 mg/0.2 mL subcutane ous kit 02/25 completed Not Available Not Available Not Available Ortho Tri-Cycle n (28) 0.18 mg(7)/0.2 15mg(7)/0 .25 mg(7)-0.0 35 mg tablet TAKE 1 TABLET BY ORAL ROUTE EVERY DAY 10/10 completed Prescrib kenia Sharif e: No Locat ion: Susy berman [facility] odify By: sailaja [email or web address] DateTime : 05/23/19 08:30:00 AM Not Available Not Available Not Available Vaniqa 13.9 % topical cream 10/11 completed Not Available Not Available Not Available ganirelix 250 mcg/0.5 mL subcutane ous syringe 02/25 completed Not Available Not Available Not Available Ovidrel 250 mcg/0.5 mL subcutane ous syringe 02/25 completed Not Available Not Available Not Available escitalop sergio 5 mg tablet TAKE 1 TABLET BY MOUTH EVERY DAY active Not Available Not Available No t Available Menopur 75 unit subcutane ous solution 02/25 completed Not Available Not Available Not Available Follistim AQ 900 unit/1.08 mL subcutane ous cartridge 02/25 completed Not Available Not Available Not Available estradiol 02/25 completed Not Available Not Available Not Available Vitamins active Not Available Not Available Not Available folic acid active Not Available Not Available Not Available Vitamin D3 02/25 completed Not Available Not Available Not Available metformin 02/25 completed Not Available Not Available Not Available Baby Aspirin active Not Available Not Available Not Available Progester one in Oil 02/25 completed Not Available Not Available Not Available Azurette (28) 0.15 mg-0.02 mg (21)/0.01 mg (5) tablet TAKE 1 TABLET BY MOUTH ONCE DAILY 06/20 completed Not Available Not Available Not Available Estarylla 0.25 mg-0.035 mg tablet TAKE 1 TABLET BY MOUTH DAILY 02/25 completed Not Available Not Available Not Available Vitals Date Recorded Body weight Body mass index (BMI) Body height Systolic And Diastolic Provider Name and Address Organization Details Last Updated DateTime 09/13/2024 74281.142 67 g 34.4 kg/m2 158.75 cm 159/98 mm[Hg] Yumi Garrisont [facility] 09/13/2024 09:41:46 Social History Question Answer Notes LastModified by Organizat ion Details LastModified Time Tobacco Smoking Status Never Smoker Alnea Cheng beatrice, [facility] 01/12/2023 16:34:14 Do You Have An Advance Directive? No [email or web address] Information n ot available 10/10/2020 If You Are , What Was Your Level Of Alcohol Consumption Prior To ? Occasional [email or web address] Information not available 08/05/2024 How Many Years Have You Consumed Alcohol? 4 [email or web address] Information not available 10/11/2021 Are You Blind Or Do You Have Difficulty Seeing? No [email or web address] Information n ot available 10/10/2020 What Is Your Level Of Caffeine Consumption? None [email or web address] Information not available 10/10/2020 How Much Tobacco Do You Chew? None [email or web address] Information not available 02/26/2024 In The 14 Days Before Symptom Onset, Have You Had Close Contact With A Laboratory-confirm ed COVID-19 While That Case Was Ill? No [email or web address] Information n ot available 10/10/2020 In The 14 Days Before Symptom Onset, Have You Had Close Contact With A Person Who Is Under Investigation For COVID-19 While That Person Was Ill? No [email or web address] Information not available 10/10/2020 Have You Been To An Area Known To Be High Risk For COVID-19? No Information not available 10/10/2020 Are You Deaf Or Do You Have Serious Difficulty Hearing? No [email or web address] Information not available 10/10/2020 What Type Of Diet Are You Following? REGULAR [email or web address] Information n ot available 10/10/2020 Which Illicit Or Recreational Drugs Have You Used? None [email or web address] Information not available 01/12/2023 What Is The Highest Grade Or Level Of School You Have Completed Or The Highest Degree You Have Received? FD02358-5 [email or web address] Information not available 10/11/2021 Are There Any Guns Present In Your Home? No [email or web address] Information not available 10/10/2020 What Was The Date Of Your Most Recent Tobacco Screening? 08/05/2024 [email or web address] Information not available 08/05/2024 Do You Use Protection During Sex? No [email or web address] Information not available 10/10/2020 Do You Use Your Seat Belt Or Car Seat Routinely? Yes [email or web address] Information not available 10/10/2020 Are You Sexually Active? Yes [email or web address] Information not available 04/15/2024 Do You Have Smoke And Carbon Monoxide Detectors In Your Home? Yes [email or web address] Information not available 10/10/2020 How Much Tobacco Do You Smoke? No [id number] Information not available 12/20/2019 Do You Use Sunscreen Routinely? Yes [email or web address] Information not available 10/10/2020 Have You Used IV Drugs? No [email or web address] Information not available 10/10/2020 Do You Have Difficulty Walking Or Climbing Stairs? No [email or web address] Information not available 01/12/2023 Sex: Unknown Functional Status Question Answer Note LastModified by Organizat ion Details LastModified Time Do you use any illicit or recreational drugs? No [email or web address] Information not available 10/10/2020 What is your level of alcohol consumption? None [email or web address] Information not available 08/05/2024 Do you or have you ever used smokeless tobacco? Never used smokeless tobacco [email or web address] Information not available 01/12/2023 Are you currently employed? Yes Information not available 04/15/2024 Are you able to walk? YESWOREST [email or web address] Information not available 10/10/2020 Are you able to care for yourself independently? 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 No [email or web address] Information not available 01/12/2023 Do you or have you ever used e-cigarettes or vape? Never used electronic cigarettes [email or web address] Information not available 01/12/2023 What is your exercise level? Moderate [email or web address] Information not available 10/11/2021 Mental Status Question Answer Note LastModified by Organization D etails LastModified Time Do you feel stressed (tense, restless, nervous, or anxious, or unable to sleep at night)? [id number] [email or web address] Information not available 12/16/2022 Family History Relationship Description Onset Age of this Age Resolved Age Notes LastModified by Organization Details LastModified Time Mother Hypercholest erolemia [email or web address] Not available 2022 16:40:38 Mother Hypertensive disorder [email or web address] Not available 2022 16:40:38 Father Hypercholest erolemia [email or web address] Not available 2022 16:40:38 Father Hypertensive disorder [email or web address] Not available 2022 16:40:38 Sister Female infertility [email or web address] Not available 09:28:36 Notes:Father: Hypertension, High cholesterol Mother: Hypertension, High cholesterol Sister: Infertility Medical History Condition Response Allergies (Food, seasonal, environmental ) N Other Y Breast Cancer N Drug/Latex Allergies/Reactions N Blood Transfusion N Dermatologic Disorders N Lung Disease N Defects or Inherited Disease N Breast Problem N Gestational Diabetes N Hematologic disorders N Anesthesia Complications N History of STI N Deep Vein Thrombosis N Polycystic ovary syndrome N Anxiety Disorder Y Autoimmune disease N Arthritis N Infertility N Polyps N Acid Reflux (GERD) N History of abnormal pap N Cancer N Stroke N Varicosities N Neurologic/Epilepsy N Endometriosis N High Cholesterol N Headaches N Fibromyalgia N Kidney Disease N Heart Problems N Kidney or Bladder Problems N Thyroid Problems N GI Problems N Eating Disorder N Anemia N Art (IVF or FET) Y Psychiatric Illness N Ovarian Cancer N Diabetes N Pulmonary (TB, Asthma) N Hepatitis/Liver Disease N No Past Medical History N Eczema N Urinary Tract Infection N Abuse/Domestic Violence N Asthma N Trauma/Violence N Depression/ depression N Heart Disease N Pre-Eclampsia N Hypertension N Osteoporosis N Thrombophilias N Gynecological History Statement/Question Response Date of Last Mammogram Flow Moderate Date of LMP 12/20/2023 N Was last menstrual period normal Y STIs/STDs N Date of control 04/22/2022 Date of Last Colonoscopy Condoms Desired Control Method Condoms Abnormal Pap N On BCP's at Conception? N HPV Vaccine N Duration of Flow (days) 3 Current Control Method Are cycles usually normal N Frequency of Cycle (Q days) 36 Sexually Active? Y Menses Monthly Y Date of DEXA bone scan Age of first menstrual cycle 13 Date of Last Pap Smear 08/19/2023 Sexual Problems? N LMP Definite N Obstetrics History GPAL:G 1 P 0 0 0 0 Type Value Living 0 Total 1 Past Encounters Encounter ID Performer Location Encounter Start Date Encounter Closed Date Diagnosis/Indication Diagnosis SNOMED-CT Code Diagnosis ICD10 Code Diagnosis Note [id number] JERSEY SOUZA MD [place] [address],[place] [address] 08/16/2024 16:58:50 08/17/2024 03:53:32 care: obstetric risk 185205500 O09.813 [id number] MD [place] [address],[place] [address] 08/16/2024 16:59:18 08/16/2024 17:22:57 Poor growth affecting management 839518351 O36.5990 O09.813 Z3A.34 [id number] JERSEY SOUZA MD [place] [address],[place] [address] 08/16/2024 16:59:38 08/16/2024 22:46:17 IVF - in-vitro fertilization [id number] 2102 O09.819 - echo at 24 weeks normal Disorder of 17 8964750 O36.5990 - EFW 11% at [facility], repeat 08/25 scheduled Gestation period, 34 weeks 37401392 Z3A.34 [id number] MD Sajan [place] [address],[place] [address] 08/22/2024 10:33:38 08/22/2024 11:32:04 care: obstetric risk [id number] O09.813 [id number] MD Sajan [place] [address],[place] [address] 08/22/2024 10:34:10 08/22/2024 11:50:22 IVF - in-vitro fertilization 1279455988 2 O09.819 - echo at 24 weeks normal Disorder of 17 6001988 O36.5990 - EFW 11% at [facility], repeat 08/25 scheduled Gestation period, 35 weeks 32286443 Z3A.35 [id number] MD Sajan [place] [address],[place] [address] 08/30/2024 10:27:58 08/30/2024 12:20:38 Conceived by in vitro fertilization 076572368 Z78.9 [id number] MD Sajan [place] [address],[place] [address] 09/02/2024 09:35:24 09/02/2024 10:05:23 IVF - in-vitro fertilization [id number] 2 O09.819 O36.5990 Z3A.37 - echo at 24 weeks normal [id number] MD Sajan [place] [address],[place] [address] 09/02/2024 09:36:37 09/02/2024 12:00:57 Conceived by in vitro fertilization 784537471 Z78.9 [id number] JESREY SOUZA MD [place] [address],[place] [address] 09/02/2024 09:36:45 09/02/2024 11:08:45 Disorder of 444019589 O36.5990 - EFW 10% at [facility] on 08/25- repeat in 2 weeks with M Placenta circumvallata 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 O43.112 Gestation period, 37 weeks 25437519 Z3A.37 [id number] MD Sajan [place] [address],[place] [address] 09/09/2024 09:34:04 09/09/2024 10:09:46 care status 088922788 O36.5930 O09.813 O43.113 Z3A.38 [id number] MD Sajan [place] [address],[place] [address] 09/09/2024 09:34:23 09/09/2024 11:15:37 care: obstetric risk [id number] O09.813 [id number] JERSEY SOUZA MD [place] [address],[place] [address] 09/09/2024 09:34:37 09/09/2024 11:15:31 growth restriction 45874069 O36.5990 Gestation period, 38 weeks 96849500 Z3A.38 [id number] JERSEY SOUZA MD [place] [address],[place] [address] 09/13/2024 09:28:32 09/13/2024 11:59:58 IVF - in-vitro fertilization 2745001320 2102 O09.819 - echo at 24 weeks normal Health Concerns Section Related Observation LastModified by Organization Detai ls LastModified Time None Recorded Concern Status LastModified by Organization Details LastModified Time None Recorded Payers Encounter Date Sequence Insurance Name Policy Number Policy Amato Covered Member ID Amato Member ID Guarantor Name 09/13/2024 1 [place] [id number] Sarah A Shreyas [id number] Sarah A Shreyas OBGyn Episode Ob Episode Information Episode Created Date Number of Fetuses Patient Bloodtype Patient rh Status Prepregnancy Weight lbs Domestic Partner Domestic Partner Phone Father Name Fine Unhairer Status 03/15/19 25 1 O Positive OPEN Fetus Data First Name Last Name Admitted to NICU Weight (g) Sex Living Outcome Pediatric Complications Fetus ID Race Codes Race Delivery Type [id number] Problems Problem Notes testing @ 36wks Problem Name Start Date End Date Resolution Snomed Code Not e Venous garces 06/13/2024 [id number] Disorder of 08/09/2024 5450043 03 IUGR [facility] Growth/BPP/NST Consult 08/11/24 Placenta circumvallata 06/13/2024 315492 0 32wk growth IVF - in-vitro fertilization [id number] [facility] echo wnl testing to start at 36wks growth restriction 09/09/2024 [id number] EFW 6% at 38 weeks, 38-39 week induction per [facility] scheduled for induction 09/15 PM Nikita Calculation Initial Nikita Date Initial Exam Date Initial Exam Provider Initial Ultrasound Date Last Menstrual Period Date Ultra Sound Weeks Gestation 09/22/2024 03/15/2024 02/23/2024 12/20/2023 9 Eighteen To Twenty Week Nikita Update Ultra Sound Date Fundal Height At Umbil Quickening Date Ultra Sound Latest Weeks Gestation Final Nikita Confirmed By Final Nikita Confirmed Date Final Nikita Date Ultra Sound Latest Days Gestation 0 [email or web address] 03/15/2024 09/23/19 25 0 Pre- Flowsheet Flowsheet Date 03/15/2024 Castañeda Score Blood Edema Fundus Height Fundus Units Glucose Ketones Leukocytes Nitrite Labor Signs Protein Cervic Dilation Cervic Effacement Cervic Station Type Weight in lbs Pre/Post Dialysis Refused Weight 165.117470388352 BP Diastolic BP Location Tested BP Systolic BP Type 81 L arm 118 sitting Fetus Heart Rate Present A Present Fetus Movement Comments Patient presents to [facility] care. IVF , dated by embryo transfer. Discussed echo for IVF around 24 weeks. otherwise uncomplicated. No nausea or cramping. NT/NB wnl 03/10, desires NIPT, drawn at time of US. New OB labs wnl. RTC 4 weeks for routine care. Flowsheet Date 04/15/2024 Castañeda Score Blood Edema Fundus Height Fundus Units Glucose Ketones Leukocytes Nitrite Labor Signs Protein Cervic Dilation Cervic Effacement Cervic Station neg none Type Weight in lbs Pre/Post Dialysis Refused 166.888935603142 BP Diastolic BP Location Tested BP Systolic BP Type 82 L arm 132 sitting Fetus Heart Rate Present Fetus Movement A Increased Comments Flowsheet Date 04/18/2024 Castañeda Score Blood Edema Fundus Height Fundus Units Glucose Ketones Leukocytes Nitrite Labor Signs Protein Cervic Dilation Cervic Effacement Cervic Station neg none Type Weight in lbs Pre/Post Dialysis Refused Weight 168.387410252278 BP Diastolic BP Location Tested BP Systolic BP Type 82 L arm 127 sitting Fetus Heart Rate Present A 155 Fetus Movement A Yes Comments Patient c/o of slight consta nt headaches. Discussed vitamin B2. Having ptyalism, discussed conservative measures, will try scop patch as well. LR female NIPT! Discussed anatomy US. RTC 2 weeks. Flowsheet Date 05/17/2024 Castañeda Score Blood Edema Fundus Height Fundus Units Glucose Ketones Leukocytes Nitrite Labor Signs Protein Cervic Dilation Cervic Effacement Cervic Station Type Weight in lbs Pre/Post Dialysis Refused BP Diastolic BP Location Tested BP Systolic BP Type Fetus Heart Rate Present Fetus Movement Comments Flowsheet Date 05/17/2024 Castañeda Score Blood Edema Fundus Height Fundus Units Glucose Ketones Leukocytes Nitrite Labor Signs Protein Cervic Dilation Cervic Effacement Cervic Station none Type Weight in lbs Pre/Post Dialysis Refused Weight 168.074279713137 BP Diastolic BP Location Tested BP Systolic BP Type 85 L arm 122 sitting Fetus Heart Rate Present A Present Fetus Movement A Yes Comments Good movement. No cram ping or bleeding. Ptyalism improved with scop patch. Anatomy normal, need RVOT and profile views. EFW 31%. Repeat in 4 weeks. Circumvallate placenta, repeat growth US at 32 weeks. RTC 4 weeks. Flowsheet Date 06/06/2024 Castañeda Score Blood Edema Fundus Height Fundus Units Glucose Ketones Leukocytes Nitrite Labor Signs Protein Cervic Dilation Cervic Effacement Cervic Station Type Weight in lbs Pre/Post Dialysis Refused BP Diastolic BP Location Tested BP Systolic BP Type Fetus Heart Rate Present Fetus Movement Comments Flowsheet Date 06/14/2024 Castañeda Score Blood Edema Fundus Height Fundus Units Glucose Ketones Leukocytes Nitrite Labor Signs Protein Cervic Dilation Cervic Effacement Cervic Station neg none Type Weight in lbs Pre/Post Dialysis Refused Weight 177.737817621076 BP Diastolic BP Location Tested BP Systolic BP Type 79 125 Fetus Heart Rate Present Fetus Movement A Yes Comments Patient is having elevated h eart rate, anxiety jamie in the evening.refer to denilson tucker for follow up anxiety. reviewed mfm us, plan US here for follow up growth borderline, discussed IVF antenataltesting, plan GCT at next visit as well. precautions and education +FM Flowsheet Date 07/08/2024 Castañeda Score Blood Edema Fundus Height Fundus Units Glucose Ketones Leukocytes Nitrite Labor Signs Protein Cervic Dilation Cervic Effacement Cervic Station Type Weight in lbs Pre/Post Dialysis Refused BP Diastolic BP Location Tested BP Systolic BP Type Fetus Heart Rate Present Fetus Movement Comments Flowsheet Date 07/08/2024 Castañeda Score Blood Edema Fundus Height Fundus Units Glucose Ketones Leukocytes Nitrite Labor Signs Protein Cervic Dilation Cervic Effacement Cervic Station neg none Type Weight in lbs Pre/Post Dialysis Refused Weight 177.711824441423 BP Diastolic BP Location Tested BP Systolic BP Type 74 111 Fetus Heart Rate Present Fetus Movement A Yes Comments saw fuentes for consult, us to day reviewed f/u in 4 weeks, gct today precautions and education f/u 2 weeks Flowsheet Date 07/22/2024 Castañeda Score Blood Edema Fundus Height Fundus Units Glucose Ketones Leukocytes Nitrite Labor Signs Protein Cervic Dilation Cervic Effacement Cervic Station neg none Type Weight in lbs Pre/Post Dialysis Refused Weight 174.226299940548 BP Diastolic BP Location Tested BP Systolic BP Type 81 122 Fetus Heart Rate Present Fetus Movement A Yes Comments Patient is having some nause a and vomiting. +FM, seeing fuentes and doing better on medication. us for growth next visit, nausea has returned, call for preadmit, education and precautions, schedule for testing Flowsheet Date 08/05/2024 Castañeda Score Blood Edema Fundus Height Fundus Units Glucose Ketones Leukocytes Nitrite Labor Signs Protein Cervic Dilation Cervic Effacement Cervic Station Type Weight in lbs Pre/Post Dialysis Refused BP Diastolic BP Location Tested BP Systolic BP Type Fetus Heart Rate Present Fetus Movement Comments Flowsheet Date 08/05/2024 Castañeda Score Blood Edema Fundus Height Fundus Units Glucose Ketones Leukocytes Nitrite Labor Signs Protein Cervic Dilation Cervic Effacement Cervic Station Type Weight in lbs Pre/Post Dialysis Refused Weight 181.629814644068 BP Diastolic BP Location Tested BP Systolic BP Type 82 127 Fetus Heart Rate Present Fetus Movement Comments Flowsheet Date 08/05/2024 Castañeda Score Blood Edema Fundus Height Fundus Units Glucose Ketones Leukocytes Nitrite Labor Signs Protein Cervic Dilation Cervic Effacement Cervic Station neg trace neg Type Weight in lbs Pre/Post Dialysis Refused 181.143981245726 BP Diastolic BP Location Tested BP Systolic BP Type 82 127 Fetus Heart Rate Present Fetus Movement A Yes Comments pt is having BH contractions and swelling. has preadmission scheduled. +FM reviewed us with dr. souza and mel parra US and consult efw 3%, will continue weekly visits here. bpp 11/25 Flowsheet Date 08/16/2024 Castañeda Score Blood Edema Fundus Height Fundus Units Glucose Ketones Leukocytes Nitrite Labor Signs Protein Cervic Dilation Cervic Effacement Cervic Station Type Weight in lbs Pre/Post Dialysis Refused BP Diastolic BP Location Tested BP Systolic BP Type Fetus Heart Rate Present Fetus Movement Comments Flowsheet Date 08/16/2024 Castañeda Score Blood Edema Fundus Height Fundus Units Glucose Ketones Leukocytes Nitrite Labor Signs Protein Cervic Dilation Cervic Effacement Cervic Station Type Weight in lbs Pre/Post Dialysis Refused BP Diastolic BP Location Tested BP Systolic BP Type Fetus Heart Rate Present Fetus Movement Comments Flowsheet Date 08/16/2024 Castañeda Score Blood Edema Fundus Height Fundus Units Glucose Ketones Leukocytes Nitrite Labor Signs Protein Cervic Dilation Cervic Effacement Cervic Station Type Weight in lbs Pre/Post Dialysis Refused Weight 184.574581922085 BP Diastolic BP Location Tested BP Systolic BP Type 82 L arm 128 sitting Fetus Heart Rate Present A 145 Fetus Movement A Yes Comments Good movement. No cram ping or bleeding. EFW 11% at [facility], repeat scan scheduled 08/25. Starting 2x weekly testing per [facility] recommendations. BPP 11/25 with normal UADs today. Discussed plan. Discussed GBS for next visit. Would like EIL at 39 weeks if growth remains stable. RTC for testing as scheduled. Flowsheet Date 08/22/2024 Castañeda Score Blood Edema Fundus Height Fundus Units Glucose Ketones Leukocytes Nitrite Labor Signs Protein Cervic Dilation Cervic Effacement Cervic Station Type Weight in lbs Pre/Post Dialysis Refused BP Diastolic BP Location Tested BP Systolic BP Type Fetus Heart Rate Present Fetus Movement Comments Flowsheet Date 08/22/2024 Castañdea Score Blood Edema Fundus Height Fundus Units Glucose Ketones Leukocytes Nitrite Labor Signs Protein Cervic Dilation Cervic Effacement Cervic Station neg none Type Weight in lbs Pre/Post Dialysis Refused Weight 185.382827219326 BP Diastolic BP Location Tested BP Systolic BP Type 83 L arm 129 sitting Fetus Heart Rate Present A Present Fetus Movement A Yes Comments Good movement. No cram ping or bleeding. Seeing MFM on , repeat US. GBS collected today. Declined SVE. NST reactive. RTC 1 week. Flowsheet Date 08/30/2024 Castañeda Score Blood Edema Fundus Height Fundus Units Glucose Ketones Leukocytes Nitrite Labor Signs Protein Cervic Dilation Cervic Effacement Cervic Station Type Weight in lbs Pre/Post Dialysis Refused BP Diastolic BP Location Tested BP Systolic BP Type Fetus Heart Rate Present Fetus Movement Comments Flowsheet Date 09/02/2024 Castañeda Score Blood Edema Fundus Height Fundus Units Glucose Ketones Leukocytes Nitrite Labor Signs Protein Cervic Dilation Cervic Effacement Cervic Station Type Weight in lbs Pre/Post Dialysis Refused BP Diastolic BP Location Tested BP Systolic BP Type Fetus Heart Rate Present Fetus Movement Comments Flowsheet Date 09/02/2024 Castañeda Score Blood Edema Fundus Height Fundus Units Glucose Ketones Leukocytes Nitrite Labor Signs Protein Cervic Dilation Cervic Effacement Cervic Station Type Weight in lbs Pre/Post Dialysis Refused BP Diastolic BP Location Tested BP Systolic BP Type Fetus Heart Rate Present Fetus Movement Comments Flowsheet Date 09/02/2024 Castañeda Score Blood Edema Fundus Height Fundus Units Glucose Ketones Leukocytes Nitrite Labor Signs Protein Cervic Dilation Cervic Effacement Cervic Station Type Weight in lbs Pre/Post Dialysis Refused Weight 185.233520184690 BP Diastolic BP Location Tested BP Systolic BP Type 90 L arm 134 sitting Fetus Heart Rate Present A Present Fetus Movement A Yes Comments Doing well, baby active. No contractions, LOF or VB. MFM US last week showed EFW 10%, AC 43%, recommend 39 week induction. Discussed possible microcephaly with MFM, no further workup at this time. BPP 11/25 today. GBS neg. EIL scheduled 09/15. RTC 1 week. Flowsheet Date 09/09/2024 Castañeda Score Blood Edema Fundus Height Fundus Units Glucose Ketones Leukocytes Nitrite Labor Signs Protein Cervic Dilation Cervic Effacement Cervic Station Type Weight in lbs Pre/Post Dialysis Refused BP Diastolic BP Location Tested BP Systolic BP Type Fetus Heart Rate Present Fetus Movement Comments Flowsheet Date 09/09/2024 Castañeda Score Blood Edema Fundus Height Fundus Units Glucose Ketones Leukocytes Nitrite Labor Signs Protein Cervic Dilation Cervic Effacement Cervic Station Type Weight in lbs Pre/Post Dialysis Refused BP Diastolic BP Location Tested BP Systolic BP Type Fetus Heart Rate Present Fetus Movement Comments Flowsheet Date 09/09/2024 Castañeda Score Blood Edema Fundus Height Fundus Units Glucose Ketones Leukocytes Nitrite Labor Signs Protein Cervic Dilation Cervic Effacement Cervic Station Type Weight in lbs Pre/Post Dialysis Refused Weight 190.825321664322 BP Diastolic BP Location Tested BP Systolic BP Type 86 L arm 129 sitting Fetus Heart Rate Present A Present Fetus Movement A Yes Comments Good movement. No cram ping or bleeding. EFW 6% at MFM yesterday, ok to keep 09/15 induction per MFM. NST reactive today. RTC next week for testing. Flowsheet Date 09/13/2024 Castañeda Score Blood Edema Fundus Height Fundus Units Glucose Ketones Leukocytes Nitrite Labor Signs Protein Cervic Dilation Cervic Effacement Cervic Station Type Weight in lbs Pre/Post Dialysis Refused 191.796879017423 BP Diastolic BP Location Tested BP Systolic BP Type 98 L arm 159 sitting Fetus Heart Rate Present Fetus Movement A Yes Comments Menstrual History Last Menstrual Date Menses Monthly On Bcp Conception Prior Menses Frequency Hcg Plus Date Menarche Onset Age 1112/20/2023 Delivery Information Delivery Date Delivery Type Labor Anesthesia Weeks Gestation Incision Type Labor Labor Length Hrs Delivered By Post Complications Tubal Sterilization Discharge Date Comments Discharge Information Feeding Method Contraceptive Method Maternal HG B and HCT Levels
--- OUTSIDE RECORDS SUMMARY | 2024-09-13 11:36 | XMS_ITS | Continuity of Care Document ---
Author Organization [facility] Address [address] [place] [address] [place] [address] Phone Care Team Providers Care Airline Pilot Flight Instructor Name Role Phone Jennifer Jim Unavailable Unavailable Procedures Procedure Date Eye Exam & Treatment Refraction Eye Exam & Treatment Refraction Eye Exam, New Patient Refraction Advance Directives Directive Yes / No Effective Date File Name No Information Encounters Encounter Description Practice Location Reason(s) For Visit Diagnoses Date Provider Providers Copied on Encounter [facility], [address] [place] [address] [address], [place], [place], [id number], tel:[phone] [facility] No Information [phone] 0 Diandra Lopes [address] , [address], [place], [place], [facility], . tel:[phone] [facility], [address] [place] [address] [address], [place], [place], [id number], [place] tel:[phone] [facility] No Information 9200 8 Diandra Lopes [address] , [address], [place], [place], [facility], . tel:[phone] [facility], [address] [place] [address] [address], [place], [place], [id number], tel:[phone] [facility] No Information 2-200 7 Diandra Milligann. [address] , [address], [place], [address], [place]. tel:[phone] Referring Provider: Maura Kee MD, [address] [place], [address]. tel:[phone] Family History Family Member Type Diagnosis Age At Onset No Information Payers Payer name Insurance type Covered green party ID Codey pérez(s) [employer] Plan [id number] Social History Type Description Quantity Date Captured Comments Sex Female Smoking Status No Information Chief Complaint And Reason For Visit No Information Reason For Referral Reason For Referral No Information History Of Present Illness Encounter Date Complaint History Of Prese nt Illness No Information Functional Status Date Functional Assessmen t No Information Instructions Date Instruction Additional Infor mation No Information Assessments Type Assessment Date No Information Patient Care Teams Name Effective Dates (start - stop) Status Members No Information
--- OUTSIDE RECORDS SUMMARY | 2024-09-13 11:36 | XMS_ITS | Data Portability ---
Author Organization [facility], [facility] Address [address] [place] [address] [place] [address] Care Team Providers Care Fundraising Officer Name Role Phone NATHALIE RIVERA Primary Care [...] d. Imaging non-str ess test 2024 025 [email or web address] [place], [place], [address], 09/13/2024 11:59:58 non-str ess test 2024 025 [email or web address] [address], [place], [address], 09/12/2024 03:06:01 US, obstetr ic, biophys ical profile + non-str ess test 2024 025 [email or web address] [place], [place], [address], 09/09/2024 11:42:44 US, doppler , umbilic al artery velocim etry 2024 025 [place], [place], [address], 09/09/2024 11:42:44 US, obstetr ic, biophys ical profile + non-str ess test 2024 025 [place], [place], [address], 09/02/2024 15:53:14 Medication Orders None recorde d. Patient TargetsNo targets recorded. Patient InstructionsNo instructions recorded. Reason for Referral None Reported. Results Created Date Observation Date Name Description Value Unit Range Abnormal Flag Note LastModifiedBy Organization Detail LastModifiedTime 08/23/1908/22/2024 CULTU RE: GROUP B STREP SCREE N, REFLE X SUSCE PTIBI LITY result report SEE RESULT S BELOW Test: Cultu re: Group B Strep , Refle x Susce ptibi lity ([facility] ) Speci men Sourc e: Vagin a/Rec delaney Speci men Type: Vagin al/Re ctal Speci men Date: 1048 Resul t Date: 2024 1411 Resul t Statu s: Final resul t Abnor mal: No Resul ting Lab: [facility] [address] [facility] [address] Tel: CULTU RE ----- ----- ----- --- No Group B strep isola cynthia at 2 days (jaylene ctive broth enhan cemen t) Not Available [facility] (Lab) [address] [facility] [facility], [place], [address], 08/25/2024 15:16:22 08/06/19 25 08/05/2024 US, obste tric, follo w-up No observ ation record ed. [email or web address] [address] [facility], [place], [address], 09/01/2024 21:40:56 08/06/19 25 08/05/2024 US, obste tric, follo w-up No observ ation record ed. [facility] [address], [place], [address], 08/05/2024 17:29:01 08/06/19 25 08/05/2024 US, obste tric, bioph ysica l profi le + non-s tress test No observ ation record ed. [facility] [address], [place], [address], 08/05/2024 17:29:11 08/06/19 25 08/05/2024 US, doppl er, umbil ical arter y veloc imetr y No observ ation record ed. [facility] [address], [place], [address], 08/05/2024 17:29:20 08/09/19 25 08/05/2024 non-s tress test No observ ation record ed. [email or web address] [place] [address], [place], [address], 08/08/2024 09:38:26 08/09/19 25 08/05/2024 non-s tress test No observ ation record ed. [email or web address] [place] [address], [place], [address], 08/08/2024 11:51:50 08/12/19 25 08/11/2024 US, obste tric, follo w-up No observ ation record ed. [email or web address] [facility] [address] [facility], [place], [address], 08/15/2024 09:25:46 08/12/19 25 08/11/2024 US, obste tric, follo w-up No observ ation record ed. [email or web address] [facility] [place] [address] [facility], [place], [address], 08/15/2024 09:29:32 08/17/19 25 08/16/2024 US, obste tric, bioph ysica l profi le + non-s tress test No observ ation record ed. [facility] [address], [place], [address], 08/16/2024 18:12:16 08/17/1908/16/2024 US, doppl er, umbil ical arter y veloc imetr y No observ ation record ed. [facility] [address], [place], [address], 08/16/2024 18:12:26 08/17/19 25 08/16/2024 US, obste tric, bioph ysica l profi le + non-s tress test No observ ation record ed. [email or web address] [facility] [address] [facility], [place], [address], 08/17/2024 09:43:52 08/17/1908/16/2024 non-s tress test No observ ation record ed. [email or web address] [place] [address], [place], [address], 08/16/2024 19:10:33 08/20/19 25 08/19/2024 non-s tress test No observ ation record ed. [place] [id number], [place], [address], 08/24/2024 07:39:39 08/23/19 25 08/22/2024 non-s tress test No observ ation record ed. ISAI [place] [address], [place], [address], 08/22/2024 13:47:45 08/26/19 25 08/25/2024 US, obste tric, follo w-up No observ ation record ed. [email or web address] [facility] [address] [facility], [place], [address], 08/30/2024 15:25:37 08/31/19 25 08/30/2024 non-s tress test No observ ation record ed. concetta [place] [address], [place], [address], 08/30/2024 12:15:54 09/03/19 25 09/02/2024 US, obste tric, bioph ysica l profi le + non-s tress test No observ ation record ed. [email or web address] [place] [address], [place], [address], 09/02/2024 17:49:19 09/03/19 25 09/02/2024 US, obste tric, bioph ysica l profi le + non-s tress test No observ ation record ed. [email or web address] [address] [facility], [place], [address], 09/02/2024 17:25:54 09/03/19 25 09/02/2024 non-s tress test No observ ation record ed. [email or web address] [place] [address], [place], [address], 09/02/2024 11:46:32 09/08/19 25 09/07/2024 US, obste tric, follo w-up No observ ation record ed. [email or web address] [facility] [address], [place], [address], 09/10/2024 10:59:12 09/08/19 25 09/07/2024 US, obste tric, follo w-up No observ ation record ed. [facility] [address] [facility], [place], [address], 09/10/2024 10:58:58 09/10/19 25 09/09/2024 US, obste tric, bioph ysica l profi le + non-s tress test No observ ation record ed. [email or web address] [place] [address], [place], [address], 09/09/2024 10:09:05 09/10/19 25 09/09/2024 US, doppl er, umbil ical arter y veloc imetr y No observ ation record ed. [email or web address] [place] [address], [place], [address], 09/09/2024 10:09:18 09/10/19 25 09/09/2024 US, obste tric, bioph ysica l profi le + non-s tress test No observ ation record ed. [email or web address] [address], [place], [address], 09/09/2024 11:45:39 09/10/19 25 09/09/2024 non-s tress test No observ ation record ed. [email or web address] [place] [address], [place], [address], 09/09/2024 11:11:12 09/14/19 25 09/13/2024 non-s tress test No observ ation record ed. [place] [address], [place], [address], 09/13/2024 11:39:39 09/14/19 25 non-s tress test No observ ation record ed. [email or web address] [place] [address], [place], [address], 09/13/2024 11:43:17 Result Notes None recorded. Problems Name Problem SNOMED Code Status Onset Date Resolution Date Notes Provider Name and Address Organization Details Recorded Time IVF - in-vitro fertiliz ation pregnanc y 28305221920 102 Active echo order faxed to [facility] 4/4 echo wnl antenata l testing to start at 36wks Ntaaly Barry [facility] 5 11:22:56 IVF - in-vitro fertiliz ation pregnanc y 40824549234 102 Active echo order faxed to [facility] 4/4 echo wnl antenata l testing to start at 36wks Nataly Barry [facility] 5 11:22:56 Hirsutis m [id number] Completed 201610/10/2020 Hirsutis m;Record ed Elsewher e: No Locat ion: [facility] S ource: EHR Core Winder yang: N Practi ce ID: 0001 Padilla lable Time: 03:30:[address] [facility] 09:52:28 Finding of regulari ty of menstrua l cycle Completed 201610/10/2020 Irregula r bleeding ;Recorde d Elsewher e: No [facility] S ource: EHR Core Winder yang: N Practi ce ID: 0001 Padilla lable Time: 02:45:[address] [facility] 09:52:25 Uses combined oral contrace ption 290223185 Completed 201610/10/2020 Encounte r for surveill ance of contrace ptive pills;Pr actice ID: 0001 Angela Hodges null, [facility] 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 09:52:34 Finding of general energy 506141212 Completed 201710/10/2020 Other fatigue; Recorded Elsewher e: No [facility] S ource: EHR Core Winder yang: N Beckieti ce ID: 0001 Padilla lable Time: 08:30:00 AM Angela Hodges [facility], [facility] 09:52:22 Screenin g for malignan t neoplasm of cervix Completed 201710/10/2020 Screenin g for malignan t neoplasm s of the cervix;R ecorded Elsewher e: No [facility]at [facility] S ource: EHR Core Winder yang: N Beckieti ce ID: 0001 Padilla lable Time: 08:30:00 AM Angela Hodges beatrice, [facility] 09:52:30 Body mass index 25-29 [facility] [id number] Completed 201710/10/2020 Body mass index (BMI) 27.0-27. 9, adult;Re corded Elsewher e: No Locat ion: [facility] S ource: EHR Core Winder yang: N Beckieti ce ID: 0001 Padilla lable Time: 08:30:00 AM Angela Hodges [facility], [facility] 09:52:[address] Concept Completed 201810/10/2020 Encntr for routine child health exam w/o abnormal findings ;Recorde d Elsewher e: No Locat ion: Susy berman [facility] S ource: EHR Core Winder yang: N Practi ce ID: 0001 Padilla lable Time: 11:30:00 AM Angela barron [facility] 1 09:52:32 Pregnanc y 97618041 Active 2024 Trinh Simons beatrice, [facility] 5 16:44:48 Placenta circumva llata 1609731 Active 2024 32wk growth Nataly barron [facility] 5 17:57:31 Venous garces 362895391 Active 2024 Nataly Barry beatrice [facility] 5 17:57:40 Disorder of pregnanc y 313913914 Active 2024 IUGR MFM referral faxed to Cheyanne Edward [facility] Growth/B PP/NST Consult 08/11/24 Nataly barron [facility] 5 09:41:57 growth restrict ion 96972499 Active 2024 EFW 6% at 38 weeks, 38-39 week inductio n per MFM schedule d for inductio n 7 PM Nataly Barry beatrice [facility] 5 11:34:58 Problem Notes None recorded. Procedures Surgical History Date Name Laterality Status Provider Name and Address Organization Details Recorded Time 4 embryo transfer completed Angela Hodges [facility] 07/08/2024 10:50:46 4 oocyte recovery completed Angela Hodges [facility] 07/08/2024 10:50:26 4 Date of Last Pap Smear completed Cecilia Hutchinson [facility] 02/26/2024 12:31:47 1 extraction of wisdom tooth completed Angela [facility] 07/22/2024 11:59:14 6 [facility] ganglion cyst [facility] 10/04/2019 11:44:42 5 excision of ganglion cyst completed Angela [facility] 10/04/2019 11:44:39 Imaging Results None recorded. [...] ORAL ROUTE EVERY DAY 10/10 completed Prescrib ed Kole e: No Locat ion: [facility] odify By: sailaja gregg DateTime : 05/23/19 18 08:30:00 AM Not Available Not Available Not [...] Available Not Available Vitals Date Recorded Body height Body mass index (BMI) Body weight Systolic And Diastolic Provider Name and Address Organization Details Last Updated DateTime 09/02/2024 158.75 cm 33.3 kg/m2 58576.59 g 134/90 mm[Hg] [facility] 09/02/2024 10:52:36 Date Recorded Body height Body mass index (BMI) Body weight Systolic And Diastolic Provider Name and Address Organization Details Last Updated DateTime 09/09/2024 158.75 cm 34.2 kg/m2 86698.55 g 129/86 mm[Hg] [facility] 09/09/2024 10:50:53 Date Recorded Body height Provider Name an d Address Organization Details Last Updated DateTime 09/09/2024 158.75 cm HERBERT Brea [facility] 09/09/2024 11:09:50 Date Recorded Body weight Body mass index (BMI) Body height Systolic And Diastolic Provider Name and Address Organization Details Last Updated DateTime 09/13/2024 24851.142 67 g 34.4 kg/m2 158.75 cm 159/98 mm[Hg] Yumi Flores [facility] 09/13/2024 09:41:46 Social History Question Answer Notes LastModified by Organizat ion Details LastModified Time Tobacco Smoking Status Never Smoker Alena barron [facility] 01/12/2023 16:34:14 Do You Have An Advance Directive? No [email or web address] Information n ot available 10/10/2020 If You Are , What Was Your Level Of Alcohol Consumption Prior To ? Occasional [email or web address] Information not available 08/05/2024 How Many Years Have You Consumed Alcohol? 4 [email or web address] Information not available 10/11/2021 Are You Blind Or Do You Have Difficulty Seeing? No [email or web address] Information n ot available 10/10/2020 What Is Your Level Of Caffeine Consumption? None [email or web address] Information not available 10/10/2020 How Much Tobacco Do You Chew? None [email or web address] Information not available 02/26/2024 In The 14 Days Before Symptom Onset, Have You Had Close Contact With A Laboratory-confirm ed COVID-19 While That Case Was Ill? No Information n ot available 10/10/2020 In The 14 Days Before Symptom Onset, Have You Had Close Contact With A Person Who Is Under Investigation For COVID-19 While That Person Was Ill? No [email or web address] Information not available 10/10/2020 Have You Been To An Area Known To Be High Risk For COVID-19? No [email or web address] Information not available 10/10/2020 Are You Deaf Or Do You Have Serious Difficulty Hearing? No Information not available 10/10/2020 What Type Of Diet Are You Following? REGULAR [email or web address] Information n ot available 10/10/2020 Which Illicit Or Recreational Drugs Have You Used? None [email or web address] Information not available 01/12/2023 What Is The Highest Grade Or Level Of School You Have Completed Or The Highest Degree You Have Received? [id number] Information not available 10/11/2021 Are There Any Guns Present In Your Home? No [email or web address] Information not available 10/10/2020 What Was The Date Of Your Most Recent Tobacco Screening? 08/05/2024 [email or web address] Information not available 08/05/2024 Do You Use Protection During Sex? No [email or web address] Information not available 10/10/2020 Do You Use Your Seat Belt Or Car Seat Routinely? Yes [email or web address] Information not available 10/10/2020 Are You Sexually Active? Yes [email or web address] Information not available 04/15/2024 Do You Have Smoke And Carbon Monoxide Detectors In Your Home? Yes [email or web address] Information not available 10/10/2020 How Much Tobacco Do You Smoke? No [id number] Information not available 12/20/2019 Do You Use Sunscreen Routinely? Yes [email or web address] Information not available 10/10/2020 Have You Used IV Drugs? No [email or web address] Information not available 10/10/2020 Do You Have Difficulty Walking Or Climbing Stairs? No [email or web address] Information not available 01/12/2023 Sex: Unknown Functional Status Question Answer Note LastModified by Organizat ion Details LastModified Time Do you use any illicit or recreational drugs? No [email or web address] Information not available 10/10/2020 What is your level of alcohol consumption? None [email or web address] Information not available 08/05/2024 Do you or have you ever used smokeless tobacco? Never used smokeless tobacco [email or web address] Information not available 01/12/2023 Are you currently employed? Yes [email or web address] Information not available 04/15/2024 Are you able to walk? YESWOREST [email or web address] Information not available 10/10/2020 Are you able to care for yourself independently? 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 No [email or web address] Information not available 01/12/2023 Do you or have you ever used e-cigarettes or vape? Never used electronic cigarettes [email or web address] Information not available 01/12/2023 What is your exercise level? Moderate [email or web address] Information not available 10/11/2021 Mental Status Question Answer Note LastModified by Organization D etails LastModified Time Do you feel stressed (tense, restless, nervous, or anxious, or unable to sleep at night)? [id number] [email or web address] Information not available 12/16/2022 Family History [...] cholesterol Sister: Infertility Medical History Condition Response Other Y Blood Transfusion N Dermatologic Disorders N Gestational Diabetes N Anxiety Disorder Y Autoimmune disease N Arthritis N Polyps N Infertility N Acid Reflux (GERD) N Cancer N Varicosities N Stroke N Neurologic/Epilepsy N Fibromyalgia N Headaches N Kidney Disease N Heart Problems N Kidney or Bladder Problems N Eating Disorder N Art (IVF or FET) Y Hepatitis/Liver Disease N No Past Medical History N Urinary Tract Infection N Asthma N Trauma/Violence N Thrombophilias N Allergies (Food, seasonal, environmental ) N Breast Cancer N Drug/Latex Allergies/Reactions N Lung Disease N Defects or Inherited Disease N Breast Problem N Hematologic disorders N Anesthesia Complications N History of STI N Deep Vein Thrombosis N Polycystic ovary syndrome N History of abnormal pap N Endometriosis N High Cholesterol N Thyroid Problems N GI Problems N Anemia N Psychiatric Illness N Ovarian Cancer N Diabetes N Pulmonary (TB, Asthma) N Eczema N Abuse/Domestic Violence N Depression/ depression N Heart Disease N Pre-Eclampsia N Hypertension N Osteoporosis N Gynecological History Statement/Question Response Date of [...] SNOMED-CT Code Diagnosis ICD10 Code Diagnosis Note [id number] Hillary Mckniney CNM [place] [address] [address] 10/04/2019 10:51:13 10/04/2019 12:03:49 [id number] Hillary Mckinney CNM [place] [address] [address] 10/10/2020 09:43:00 10/10/2020 12:37:53 Gynecologic examination 79237466 Z01.419 [id number] Hillary Mckinney [facility] [address],[place] [address] 10/11/2021 16:07:27 10/11/2021 17:15:04 Gynecologic examination 20255112 Z01.419 [id number] [facility] [address],[place] [address] 06/20/2022 11:33:39 06/20/2022 12:37:31 Family planning surveillance 247226040 Z30.09 plan carrier screen,cbc , tsh, vit dstart PNVdiscuss ed timed intercours e, monitoring cyclesall questions answered [id number] CURTIS Giron [place] [address],[place] [address] 11/14/2022 12:34:26 11/14/2022 13:20:23 Irregular periods 00836232 N92.6 will update labsdiscus sed timed IC, monitoring cycles/ovu lation stripsplan to f/u with SP in 2 months Time spent in visit is a total of 25 mins with at least 50% of visit consisting of counseling and review of plan of care. 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- Pelvic US to evaluate uterus and ovaries- discussed effects of PCOS on fertility- patient having positive OPKs monthly, will check luteal phase progestero ne after next +OPK Trying to conceive 04715 9001 Z31.9 - discussed timing of intercours e with +OPKs; recommend intercours e at least every other day in the 5 days leading up to positive test- discussed that if having regular periods with +OPKs would hold off on ovulation induction agents for now- recommend semen analysis prior to OI, handouts given- patient to call with next +OPK and cycle day 1 for luteal phase progestero ne level [id number] JERSEY SOUZA MD [place] [address],[place] [address] 12/30/2022 10:02:53 12/30/2022 10:44:26 Irregular periods 26492801 N92.6 N97.9 [id number] JERSEY SOUZA MD [place] [address],[place] [address] 01/12/2023 16:34:00 01/13/2023 10:04:40 Polycystic ovary syndrome 346878411 E28.2 Primary infertility 2971 34887 N97.0 - PCOS confirmed by US, clinical hyperandro genism, and oligomenor abner- uterus shape and EMS appears normal- LMP 11/22/22- discussed implicatio ns of PCOS to reproducti ve, endocrine, and cardiovasc ular systems; A1c within goal, no hx of CVD or HTN- 's semen analysis wnl aside from slightly low morphology ; discussed avoidance of alcohol, tobacco, as well as exercise and healthy diet to improve parameters - given anovulatio n, recommend starting letrozole with next cycle (CD 3-7)- will repeat progestero ne level at CD21 to check for ovulation on letrozole 2.5mg; discussed increasing dose if no ovulation occurs [id number] JERSEY SOUZA MD [place] [address],[place] [address] 05/08/2023 11:53:02 05/18/2023 00:10:12 Polycystic ovary syndrome 798899738 E28.2 - plan to continue letrozole for ovulation induction- discussed and agreed for 2 additional cycles (6 total) of +ovulation with letrozole; if no conception in that time, option given to start IUIs in addition to ovulation with letrozole- discussed r/b/a of IUI, including use of trigger shot to induce ovulation and timing of IUI; patient and voice understand ing- will continue letrozole, follow up in office after 2 additional letrozole cycles Female infertility 73178 08 N97.9 [id number] JERSEY SOUZA MD [place] [address],[facility] [place] [address] 08/19/2023 16:12:45 08/20/2023 08:23:22 Gynecologic examination 79326706 Z01.419 Well woman care- Cervical cancer screening: Pap smear obtained today, will follow up on the results with the patient as they become available- Breast cancer screening: mammogram not indicated- Colon cancer screening: does not qualify- HPV immunizati on: declined- STD testing: declined- hereditary cancer screening: does not qualify for testing [id number] Darwin Gray MD [place] [address],[place] [address] 02/23/2024 10:15:29 02/23/2024 10:49:10 [id number] JERSEY SOUZA MD [place] [address],[place] [address] 02/26/2024 12:04:52 02/29/2024 18:23:54 test positive 311097510 Z32.01 1. Exam today within normal limits.2. Ultrasound today confirms GA and viability. EDC . GC/Clamydi a testing done: will f/u as indicated. 4. ACOG guidelines and plan of care for reviewed with patient. All questions answered.5 . Return to office at 12 weeks for new OB visit6. Will need new OB labs at next visit.7. Genetic screening: desires, PGT-A wnl prior to embryo transfer. [id number] Darwin Gray MD [place] [address],[place] [address] 03/10/2024 10:28:24 03/10/2024 14:13:00 screening 000620390 Z36.82 Z3A.12 [id number] JERSEY SOUZA MD [place] [address],[place] [address] 03/15/2024 16:31:56 03/15/2024 17:17:10 IVF - in-vitro fertilization 1942600939 2102 O09.819 Gestation period, 12 weeks 21736497 Z3A.12 [id number] JERSEY SOUZA MD [place] [address],[place] [address] 04/15/2024 09:39:01 04/15/2024 17:46:39 [id number] JERSEY SOUZA MD [place] [address],[place] [address] 04/18/2024 15:41:48 04/18/2024 16:30:23 Excessive salivation 98988490 K11.7 - has tried conservati ve measures without improvemen t- will try scop patch Gestation period, 17 weeks 48813357 Z3A.17 [id number] JERSEY SOUZA MD [facility] [address],[place] [address] 05/17/2024 10:32:26 05/17/2024 14:29:32 IVF - in-vitro fertilization [id number] 2102 O09.819 - echo at 24 weeks Gestation period, 21 weeks [id number] Z3A.21 - continue PNV [id number] Darwin Gray MD [facility] [address],[place] [address] 05/17/2024 10:33:15 05/17/2024 11:54:20 screening for malformation [id number] Z36.3 Z3A.21 [id number] Darwin Gray MD [facility] [address],[place] [address] 06/06/2024 14:25:49 06/06/2024 15:40:35 anatomy study [id number] Z36.2 [id number] [facility] [address],[place] [address] 06/14/2024 11:55:10 06/15/2024 05:12:23 Gestation period, 25 weeks [id number] Z3A.25 refer to denilson coronado apn for anxiety f/u [id number] Darwin Gray MD [facility] [address],[place] [address] 1 07/08/2024 09:46:14 07/08/2024 10:45:25 resulting from assisted conception [id number] O09.819 Z3A.29 [id number] [facility] [address],[place] [address] 07/08/2024 09:46:43 07/08/2024 11:04:06 Gestation period, 29 weeks [id number] Z3A.29 [id number] Hillary Mckinney [facility] [address],[place] [address] 1 07/22/2024 11:30:39 07/22/2024 12:23:30 Gestation period, 31 weeks 82431702 Z3A.31 [id number] Darwin Gray MD [place] [facility] [address],[place] [address] 1 08/05/2024 12:02:56 08/05/2024 13:26:24 Poor growth affecting management 873355350 O36.5990 O09.813 Z3A.33 [id number] Hillary Mckinney [facility] [address],[place] [address] 1 08/05/2024 12:03:14 08/05/2024 14:06:30 Gestation period, 33 weeks 14304991 Z3A.33 [id number] Hillary Mckinney [facility] [address],[place] [address] 1 08/08/2024 09:35:44 08/08/2024 09:50:44 care: obstetric risk [id number] O09.819 [id number] JERSEY SOUZA MD [place] [facility] [address],[place] [address] 1 08/16/2024 16:58:50 08/17/2024 03:53:32 care: obstetric risk [id number] O09.813 [id number] JERSEY SOUZA MD [place] [address],[place] [address] 1 08/16/2024 16:59:18 08/16/2024 17:22:57 Poor growth affecting management 878879120 O36.5990 O09.813 Z3A.34 [id number] JERSEY SOUZA MD [place] [facility] [address],[place] [address] 08/16/2024 16:59:38 08/16/2024 22:46:17 IVF - in-vitro fertilization [id number] 2102 O09.819 - echo at 24 weeks normal Disorder of 17 2682107 O36.5990 - EFW 11% at [facility], repeat 08/25 scheduled Gestation period, 34 weeks 42810736 Z3A.34 [id number] JERSEY SOUZA MD [place] [facility] [address],[place] [address] 08/22/2024 10:33:38 08/22/2024 11:32:04 care: obstetric risk [id number] O09.813 [id number] JERSEY SOUZA MD [place] [facility] [address],[place] [address] 08/22/2024 10:34:10 08/22/2024 11:50:22 IVF - in-vitro fertilization [id number] 2102 O09.819 - echo at 24 weeks normal Disorder of 17 6801851 O36.5990 - EFW 11% at [facility], repeat 08/25 scheduled Gestation period, 35 weeks 33471412 Z3A.35 [id number] JERSEY SOUZA MD [facility] [address],[place] [address] 08/30/2024 10:27:58 08/30/2024 12:20:38 Conceived by in vitro fertilization [id number] Z78.9 [id number] JERSEY SOUZA MD [facility] [address],[place] [address] 09/02/2024 09:35:24 09/02/2024 10:05:23 IVF - in-vitro fertilization [id number] 2102 O09.819 O36.5990 Z3A.37 - echo at 24 weeks normal [id number] MD Sajan AUGUSTIN [address],[place] [address] 09/02/2024 09:36:37 09/02/2024 12:00:57 Conceived by in vitro fertilization [id number] Z78.9 [id number] JERSEY SOUZA MD [facility] [address],[place] [address] 09/02/2024 09:36:45 09/02/2024 11:08:45 Disorder of [id number] O36.5990 - EFW 10% at [facility] on 08/25- repeat in 2 weeks with MFM 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 O43.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 Gestation period, 37 weeks 94145940 Z3A.37 [id number] JERSEY SOUZA MD [facility] [address],[place] [address] 09/09/2024 09:34:04 09/09/2024 10:09:46 care status [id number] O36.5930 O09.813 O43.113 Z3A.38 [id number] JERSEY SOUZA MD [facility] [address],[place] [address] 09/09/2024 09:34:23 09/09/2024 11:15:37 care: obstetric risk [id number] O09.813 [id number] JERSEY SOUZA MD [facility] [address],[place] [address] 1 09/09/2024 09:34:37 09/09/2024 11:15:31 growth restriction 96956646 O36.5990 Gestation period, 38 weeks 57575151 Z3A.38 [id number] JERSEY SOUZA MD [place] [facility] [address],[place] [address] 1 09/13/2024 09:28:32 09/13/2024 11:59:58 IVF - in-vitro fertilization [id number] 2102 O09.819 - echo at 24 weeks normal Health Concerns Section Related Observation LastModified by Organization Detai ls LastModified Time None Recorded Concern Status LastModified by Organization Details LastModified Time None Recorded Advance Directives Directive N: Payers Insurance Date Sequence Insurance Name Policy Number Policy Amato Covered Member ID Amato Member ID Guarantor Name 09/27/2021 1 [employer] - DOS PRIOR TO 20 - [facility] BENEF[facility] [id number] Leroy Bishop [id number] OI Sarah A Shreyas 09/12/2024 2 [place] [id number] Sarahlenin Pritchett BB [id number] Sarah A Shreyas 09/12/2024 1 [place] [id number] Sarah A Shreyas [id number] Sarah A Shreyas 09/12/2024 1 [place] [id number] Sarah A Shreyas [id number] Sarah A Shreyas OBGyn Episode Ob Episode Information Episode Created Date Number of Fetuses Patient Bloodtype Patient rh Status Prepregnancy Weight lbs Domestic Partner Domestic Partner Phone Father Name Director Of Business Applications Status 03/15/19 1 O Positive OPEN Fetus Data First Name Last Name Admitted to NICU Weight (g) Sex Living Outcome Pediatric Complications Fetus ID Race Codes Race Delivery Type [id number] Problems Problem Notes testing @ 36wks Problem Name Start Date End Date Resolution Snomed Code Not e Venous garces 06/13/2024 [id number] Disorder of 08/09/2024 [id number] 03 IUGR [facility] referral faxed to [facility] Edward [facility] Growth/BPP/NST Consult 08/11/24 Placenta circumvallata 06/13/2024 623213 0 32wk growth IVF - in-vitro fertilization [id number] echo or natty faxed to [facility] 05/20 echo wnl testing to start at 36wks growth restriction 09/09/2024 [id number] EFW 6% at 38 weeks, 38-39 week induction per [facility] scheduled for induction 09/15 PM Nikita Calculation [...] Date Ultra Sound Latest Days Gestation 0 [id number] 03/15/2024 09/23/19 25 0 Pre- Flowsheet Flowsheet Date 03/15/2024 Castañeda Score Blood Edema Fundus Height Fundus Units Glucose Ketones Leukocytes Nitrite Labor Signs Protein Cervic Dilation Cervic Effacement Cervic Station Type Weight in lbs Pre/Post Dialysis Refused Weight 165.683699537623 BP Diastolic BP Location Tested BP Systolic BP Type 81 L arm 118 sitting Fetus Heart Rate Present A Present Fetus Movement Comments Patient presents to [facility] care. IVF , dated by embryo transfer. [...] Type Weight in lbs Pre/Post Dialysis Refused 166.686807209278 BP Diastolic BP Location Tested BP Systolic BP Type 82 L arm 132 sitting Fetus Heart Rate Present Fetus Movement A Increased Comments Flowsheet Date 04/18/2024 Castañeda Score Blood Edema Fundus Height Fundus Units Glucose Ketones Leukocytes Nitrite Labor Signs Protein Cervic Dilation Cervic Effacement Cervic Station neg none Type Weight in lbs Pre/Post Dialysis Refused Weight 168.564346030984 BP Diastolic BP Location Tested BP Systolic [...] Weight in lbs Pre/Post Dialysis Refused Weight 168.446042028565 BP Diastolic BP Location Tested BP Systolic [...] Weight in lbs Pre/Post Dialysis Refused Weight 177.151329002783 BP Diastolic BP Location Tested BP Systolic [...] Weight in lbs Pre/Post Dialysis Refused Weight 177.312243398810 BP Diastolic BP Location Tested BP Systolic BP Type 74 111 Fetus Heart Rate Present Fetus Movement A Yes Comments saw fuenets for consult, us to day reviewed f/u in 4 weeks, gct today precautions and education f/u 2 weeks Flowsheet Date 07/22/2024 Castañeda Score Blood Edema Fundus Height Fundus Units Glucose Ketones Leukocytes Nitrite Labor Signs Protein Cervic Dilation Cervic Effacement Cervic Station neg none Type Weight in lbs Pre/Post Dialysis Refused Weight 174.246178514073 BP Diastolic BP Location Tested BP Systolic [...] Weight in lbs Pre/Post Dialysis Refused Weight 181.119234385354 BP Diastolic BP Location Tested BP Systolic BP Type 82 127 Fetus Heart Rate Present Fetus Movement Comments Flowsheet Date 08/05/2024 Castañeda Score Blood Edema Fundus Height Fundus Units Glucose Ketones Leukocytes Nitrite Labor Signs Protein Cervic Dilation Cervic Effacement Cervic Station neg trace neg Type Weight in lbs Pre/Post Dialysis Refused 181.473781940617 BP Diastolic BP Location Tested BP Systolic BP Type 82 127 Fetus Heart Rate Present Fetus Movement A Yes Comments pt is having BH contractions and swelling. has preadmission scheduled. +FM reviewed us with dr. souza and mel the [facility] US and consult efw 3%, will continue [...] Weight in lbs Pre/Post Dialysis Refused Weight 184.610433852460 BP Diastolic BP Location Tested BP Systolic BP Type 82 L arm 128 sitting Fetus Heart Rate Present A 145 Fetus Movement A Yes Comments Good movement. No cram ping or bleeding. EFW 11% at [facility], repeat scan scheduled 08/25. Starting 2x weekly testing per [facility] recommendations. BPP 11/25 with normal UADs today. [...] Present Fetus Movement Comments Flowsheet Date 08/22/2024 Castañeda Score Blood Edema Fundus Height Fundus Units Glucose Ketones Leukocytes Nitrite Labor Signs Protein Cervic Dilation Cervic Effacement Cervic Station neg none Type Weight in lbs Pre/Post Dialysis Refused Weight 185.310340342345 BP Diastolic BP Location Tested BP Systolic BP Type 83 L arm 129 sitting Fetus Heart Rate Present A Present Fetus Movement A Yes Comments Good movement. No cram ping or bleeding. Seeing [facility] on , repeat US. GBS collected today. [...] Weight in lbs Pre/Post Dialysis Refused Weight 185.104248357717 BP Diastolic BP Location Tested BP Systolic [...] Weight in lbs Pre/Post Dialysis Refused Weight 190.626812096140 BP Diastolic BP Location Tested BP Systolic BP Type 86 L arm 129 sitting Fetus Heart Rate Present A Present Fetus Movement A Yes Comments Good movement. No cram ping or bleeding. EFW 6% at [facility] yesterday, ok to keep 09/15 induction per [facility]. NST reactive today. RTC next week for testing. Flowsheet Date 09/13/2024 Castañeda Score Blood Edema Fundus Height Fundus Units Glucose Ketones Leukocytes Nitrite Labor Signs Protein Cervic Dilation Cervic Effacement Cervic Station Type Weight in lbs Pre/Post Dialysis Refused 191.098751599088 BP Diastolic BP Location Tested BP Systolic [...]
[2024-09-13 12:13] LABS: Hematocrit 36.9 % (37.0-47.0); Hemoglobin 12.0 g/dL (12.0-15.0); Immature Granulocyte Percent A 0.5 % (0-0.5); Lymphocytes Absolute Auto 1.59 K/mm3 (0.9-3.2); Mean Corpuscular HGB Conc 32.5 g/dl (32-36); Mean Corpuscular Hemoglobin 27.4 pg (26-34); Mean Corpuscular Volume 84.2 fl (80-100); Nucleated Red Blood Cells Absolute Auto 0.000 K/mm3 (0.0-0.012); Nucleated Red Blood Cells Perc 0.0 % (0.0-0.2); Platelet Count Result 183 k/mm3 (150-375); Red Blood Count 4.38 M/mm3 (4.2-5.4); White Blood Count 6.1 K/mm3 (4.5-10.0)
--- NOTE | 2024-09-13 12:25 | LDADM ---
This patient, Sarah Pritchett ( Asher ), was admitted to Labor/Delivery/Recovery 103 on 09/13/24 at 11:31. Plans for labor, pain management and were discussed with patient. Patient/family oriented to hospital policies and general routines including ID bracelet, bed and alarms, visiting hours, pain management, procedures, bathroom and other care routines, personal items, smoking policy, room service/diet and guest tray routines, security routines, and visiting hours. Patient/Family are encouraged to report perceived risks to care and to ask questions if they do not understand what they are told or what they should do. See OBIX for further documentation.
--- NOTE | 2024-09-13 12:49 | PM.IMHP ---
H&P: HPI History of Present Illness Date/Time: 09/13/24 12:49 Chief Complaint: growth restriction, gestational hypertension Narrative: Patient is a 28 year old female at 38w5d who presents for induction of labor indicated for gestational hypertension and growth restriction. She met criteria for gestational hypertension in office today. Denies headaches, vision changes, chest pain, dyspnea, RUQ pain or epigastric pain. growth restriction has been monitored with mfm, most recent EFW 6% at [facility] last week. Umbilical artery dopplers wnl. testing reactive. Review of Systems Review of Systems: All systems reviewed & are unremarkable except as noted in HPI and below PMFSH Surgical History Surgical History H/O wrist surgery (~2016) 2013, 2014, 2015 Right Family History Family History Mother Hypertension Sibling AA (alcohol abuse) Father Kidney malignancy Other Diabetes mellitus Family history of thyroid disease Social History Social History Smoking status: Never smoker Alcohol intake: never Substance use: never Lack of Transportation: No Lack of Food: Never True Current Housing: I Have Housing Concerned About Future Housing: No Difficulty Paying Gas/Electric Bills: No Difficulty Paying for Meds: No Currently Unemployed: No Education: Master's Degree or Higher Difficulty w/ Childcare or Family Care: No Meds Home Medications and Allergies Home Medications ?Medication ?Instructions ?Recorded ?Confirmed ?Type aspirin 81 mg chewable tablet 81 mg PO DAILY 08/10/24 09/13/24 History cholecalciferol (vitamin D3) 25 25 mcg PO DAILY 08/10/24 09/13/24 History mcg (1,000 unit) capsule escitalopram oxalate 5 mg tablet 5 mg PO DAILY 08/10/24 09/13/24 History hydroxyzine HCl 25 mg tablet 25 mg PO QID PRN nausea and 08/10/24 09/13/24 History vomiting metformin 500 mg tablet 500 mg PO DAILY 08/10/24 09/13/24 History vits 75-iron 28 mg-folic 1 pkg PO DAILY 08/10/24 09/13/24 History acid 800 mcg-omega3 440 mg oral pack (One Daily ) Allergies Allergy/AdvReac Type Severity Reaction Status Date / Time No Known Allergies Allergy Verified 09/13/24 12:45 Vital Signs Vital Signs - 24 hr 09/13/24 12:15 09/13/24 12:25 09/13/24 12:30 Pulse Rate 83 102 H Blood Pressure 148/93 H 143/96 H Oxygen Delivery Room Air 09/13/24 12:45 Pulse Rate 89 Blood Pressure 141/98 H Oxygen Delivery Exam Const: General: comfortable and no acute distress HENMT: Mouth: Yes moist mucous membranes Eyes: General: appearance normal, both eyes and all related structures Resp: Effort & Inspection: normal respiratory effort Cardio: Rate: regular rate H&P: Results Labs Labs: Short CBC 09/13/24 Range/Units 11:45 WBC 6.1 (4.5-10.0) K/mm3 Hgb 12.0 (12.0-15.0) g/dL Hct 36.9 L (37.0-47.0) % Plt Count 183 (150-375) k/mm3 Assessment and Plan Assessment and plan (1) growth restriction antepartum: Code(s): O36.5990 - Maternal care for other known or suspected poor growth, unspecified trimester, not applicable or unspecified Status: Acute Assessment and Plan: - EFW 6% at 37 weeks - followed by [facility] REECE - umbilical artery dopplers wnl - testing reactive - cytotec 50mcg buccal for induction - FHR category I (2) Gestational hypertension: Code(s): O13.9 - Gestational [-induced] hypertension without significant proteinuria, unspecified trimester Status: Acute Assessment and Plan: - asymptomatic - mild range BPs - continue to monitor closely for development of preeclampsia
[2024-09-13 13:26] LABS: Syphilis IgG/IgM Antibody Non-Reactive (Nonreactive)
[2024-09-13] MEDS: LACTATED RINGERS 1,000 ML 125 ML IV CONT ×2 (16:45→19:08)
[2024-09-13] MEDS: OXYTOCIN 30 UNITS/NS 500 ML 30 UNITS/500 ML BAG IV CONT (16:45)
--- NOTE | 2024-09-13 17:39 | P.PNAN_ITS ---
Anes - Eval Pre Procedure Procedure: Labor Epidural Date/Time: 09/13/24 17:39 Surgeon: Carter Preop Diagnosis: Labor Pain Pre Op Diagnosis: IOL Patient Data Age: 28 Gender: F Height: 1.6 m Weight: 85 kg Last Vital Signs Temp 36.6 C 09/13/24 12:30 Pulse 90 09/13/24 17:30 BP 134/77 09/13/24 17:30 O2 Del Method Room Air 09/13/24 12:25 Allergies Allergy/AdvReac Type Severity Reaction Status Date / Time No Known Allergies Allergy Verified 09/13/24 12:45 Home Medications ?Medication ?Instructions ?Recorded ?Confirmed ?Type aspirin 81 mg chewable tablet 81 mg PO DAILY 08/10/24 09/13/24 History cholecalciferol (vitamin D3) 25 25 mcg PO DAILY 08/10/24 09/13/24 History mcg (1,000 unit) capsule escitalopram oxalate 5 mg tablet 5 mg PO DAILY 08/10/24 09/13/24 History hydroxyzine HCl 25 mg tablet 25 mg PO QID PRN nausea and 08/10/24 09/13/24 History vomiting metformin 500 mg tablet 500 mg PO DAILY 08/10/24 09/13/24 History vits 75-iron 28 mg-folic 1 pkg PO DAILY 08/10/24 09/13/24 History acid 800 mcg-omega3 440 mg oral pack (One Daily ) Laboratory Tests 09/13/24 11:45 WBC 6.1 K/mm3 (4.5-10.0) RBC 4.38 M/mm3 (4.2-5.4) Hgb 12.0 g/dL (12.0-15.0) Hct 36.9 L % (37.0-47.0) MCV 84.2 fl (80-100) MCH 27.4 pg (26-34) MCHC 32.5 g/dl (32-36) RDW 14.6 H % (11.5-14.5) Plt Count 183 k/mm3 (150-375) MPV 12.4 H fl (7.4-10.4) Immature Gran % (Auto) 0.5 % (0-0.5) Neut % (Auto) 64.8 % (45.5-73.1) Lymph % (Auto) 26.0 % (18.3-44.2) [place] % (Auto) 7.5 % (2.6-8.5) Eos % (Auto) 0.7 % (0-4.4) Baso % (Auto) 0.5 % (0.2-1.2) Lymph # (Auto) 1.59 K/mm3 (0.9-3.2) [place]ens # (Auto) 0.5 K/mm3 (0.1-0.6) Eos # (Auto) 0.0 K/mm3 (0-0.3) Baso # (Auto) 0.0 K/mm3 (0.0-0.1) Abs Immat Gran (auto) 0.03 K/mm3 (0.00-0.031) Absolute Neuts (auto) 4.0 K/mm3 (1.3-6.7) Absolute Nucleated RBC 0.000 K/mm3 (0.0-0.012) Nucleated RBC % 0.0 % (0.0-0.2) Syphilis IgG/IgM Ab Non-reactive (Nonreactive) Blood Type O Positive Antibody Screen Negative : gestational age (NAT 09/22/24) Patient hx anesthesia problems: none Family hx anesthesia problems: none Results Review: All pre-operative results and documents have been reviewed as part of the pre- operative evaluation. [facility] Surgical History Surgical History H/O wrist surgery (~2016) 2013, 2015, 2016 Right Family History Family History Mother Hypertension Sibling AA (alcohol abuse) Father Kidney malignancy Other Diabetes mellitus Family history of thyroid disease Social History Social History Smoking status: Never smoker Alcohol intake: never Substance use: never Lack of Transportation: No Lack of Food: Never True Current Housing: I Have Housing Concerned About Future Housing: No Difficulty Paying Gas/Electric Bills: No Difficulty Paying for Meds: No Currently Unemployed: No Education: Master's Degree or Higher Difficulty w/ Childcare or Family Care: No Exam Day of Procedure 09/13/24 17:39 Patient weight: normal Heart: regular rate and rhythm Lungs: normal air movement Airway: Mallampati scale class II Neurological: alert and oriented
--- NOTE | 2024-09-13 18:10 | PM.OBPNLAB ---
Pain Control Date/time seen: 09/13/24 18:10 Pain control: epidural Pelvic Exam Dilation (cm): 2 Effacement (%): 90 station: -2 Amniotic membrane status: Ruptured (clear fluid) Contractions Monitor mode: External Contraction pattern: Irregular Status status: Category l Assessment and Plan Pitocin rate (mU/min): 2 Assessment: induction ongoing Plan: continuous present management
[2024-09-13] MEDS: ONDANSETRON INJ 4 MG/2 ML VIAL IV PUSH (19:12)
[2024-09-14] VITALS (42 sets, daily range): BP systolic 101–186; BP diastolic 62–157; PULSE 88–201; RESP 14–18; TEMP 36.6–37.3; O2SAT 82–100
[2024-09-14] MEDS: OXYTOCIN 30 UNITS/NS 500 ML 30 UNITS/500 ML BAG 999 UNITS IV CONT (00:04)
--- NOTE | 2024-09-14 00:25 | P.PCNOB_ITS ---
OB - Vaginal Delivery Note Procedure Delivery date: 09/14/24 Events: Gestational Hypertension and Intrauterine Growth Restriction (IUGR) Induction method: Per Misoprostol Protocol Delivery augmentation: Rupture of Membranes and Pitocin Delivery monitor: External FHT and External Uterine Route of delivery: Episiotomy description: None Laceration Description: Perineal - 2nd Degree Delivery repair: vicryl Specimen: No Quantitative Blood Loss (ml): 200 Anesthesia type: Epidural Disposition: Floor Complications: No immediate complications Narrative: See H&P and notes for details on patient's admission and labor. She progressed to complete cervical dilation and at the appropriate time began pushing. With adequate expulsive efforts by the mother, the baby's head was delivered without difficulty. Nuchal cord was not present. The baby's left shoulder was anterior and delivered under the pubic symphysis without difficulty. The posterior shoulder and the rest of the baby delivered without difficulty. The umbilical cord was doubly clamped and cut after 60 seconds of delayed cord clamping. Care of the infant was then assumed by the nursing staff. [place] Baby Date of : 09/14/24 Time of : 00:03 Gestational Age by Date: 38 Infant gender: Female Weight (pounds): 6 Weight (ounces): 6 presentation: vertex position: Left Occiput Anterior Placenta delivery description: Expressed Cord Vessel Description: 3 Vessels and Delayed Cord Clamping
[2024-09-14] MEDS: OXYTOCIN 30 UNITS/NS 500 ML 30 UNITS/500 ML BAG 125 UNITS IV CONT (00:35)
[2024-09-14] MEDS: CARBOPROST TROMETHAMINE 250 MCG/ML AMPUL IM (02:00)
[2024-09-14] MEDS: LOPERAMIDE HCL 2 MG CAPSULE 4 MG PO (02:07)
[2024-09-14] MEDS: ONDANSETRON INJ 4 MG/2 ML VIAL IV PUSH (02:11)
[2024-09-14] MEDS: IBUPROFEN 600 MG TABLET PO ×3 (03:50→16:24)
[2024-09-14] MEDS: ACETAMINOPHEN 325 MG TABLET 650 MG PO ×3 (03:50→16:24)
[2024-09-14] MEDS: ESCITALOPRAM OXALATE 5 MG TABLET PO (09:00)
[2024-09-14] MEDS: CHOLECALCIFEROL (VITAMIN D3) 25 MCG (1,000 UNITS) TABLET PO (09:00)
[2024-09-14] MEDS: MULTIVIT/MIN/PREN/FOL AC/IRON TABLET 1 TAB PO (09:00)
--- NOTE | 2024-09-14 10:31 | WPDANLDPN2 ---
Anes-Prog Note L&D Date/Time: 09/14/24 10:31 Comfortable throughout: labor and delivery Neuraxial method: epidural Epidural/Spinal procedure site: clean & non-tender Neuro status: Neuro function grossly intact. Cardiovascular status: normal Respiratory status: normal Airway patency: baseline Mental status: baseline Post-Op hydration status: normal Vital Signs: Last Vital Signs Temp 37.3 C 09/14/24 07:30 Pulse 92 09/14/24 07:30 Resp 18 09/14/24 07:30 BP 124/76 09/14/24 07:30 Pulse Ox 100 09/14/24 07:30 O2 Del Method Room Air 09/13/24 12:25 Pain score (VAS): 2 I/O: Intake & Output 09/13/24 09/14/24 09/14/24 23:59 07:59 15:59 Intake Total 1000 1900 Output Total 900 Balance 1000 1000 Post-procedural complaints: none Patient feedback: Patient satisfied with anesthetic care.
--- NOTE | 2024-09-14 10:45 | PC.NURSE ---
Patient called out for assistance. She states that baby has fed well so far but she has concerns that there is a tongue or lip tie because baby makes a lot of noise with latch. 's tongue has good range of motion and moves well past the lower gums. Mom has tried cradle and football position so far. Cross cradle shown and mother's hands placed to assist with holding baby and her breast. She is instructed to use a sandwich hold to compress the breast for an easier latch. Baby latches eagerly and optimally on the first try. Mom was tugging on the breast tissue immediately above the areola so she is encouraged to relax her hand and allow the breast to lay naturally. Mom states that this feels much better, there is no pain. Baby is vigorous and nursing very well. Mom is counseled to call out for assistance switching breasts or if the latch begins to feel painful or pinchy. Patient agrees and seems comfortable with baby latched and suckling. Father is present and supportive. Patient knows she may call out for any assistance needed today. Primary RN updated.
--- NOTE | 2024-09-14 15:40 | PC.NURSE ---
Patient called out for feeding assistance. Baby was sleepy and we undressed her and changed her diaper to wake her up. She did root and search for the breast but when placed close to mom, she fell asleep again. Mom is doing a very good job of holding her breast and holding baby in cross cradle. We reviewed asymmetrical latch and signs of a deep latch. Mom was shown how to break suction to remove baby from the breast. After trying for several minutes without any effort from baby, mom is encouraged to do skin to skin and try again in about 30 minutes. Mom will observe baby for feeding cues and feed sooner if baby is ready. Mom is instructed to call out for assistance as needed. She is feeling more confident with positioning and wants to try latching independently. Primary RN notified.
[2024-09-15] VITALS (11 sets, daily range): BP systolic 112–136; BP diastolic 70–89; PULSE 90–99; RESP 16–18; TEMP 36.4–37; O2SAT 98–100
[2024-09-15 05:08] LABS: Hematocrit 22.8 % (37.0-47.0)
[2024-09-15 05:15] LABS: Hemoglobin 6.6 g/dL (12.0-15.0)
[2024-09-15 05:40] LABS: Hematocrit 23.7 % (37.0-47.0); Hemoglobin 7.0 g/dL (12.0-15.0)
--- NOTE | 2024-09-15 08:20 | PC.NURSE ---
Mother verbalizes she is able to independently latch with appropriate positioning and alignment. She denies any nipple discomfort and is responsively . Infant is currently meeting outcomes for weight, output, jaundice, blood sugar and feeding frequencies of 8-12 times in 24 hours. Mother declines any additional assistance or education at this time. Mother is encouraged to call for assistance if her infant doesn?t latch, pain with latching, questions or concerns. Mother voiced understanding of information shared along with the mom/baby guide for an additional resource. Reported to the Primary RN.
--- NOTE | 2024-09-15 08:27 | P.PNOB_ITS ---
OB - PN: Subj Subjective Date/time seen: 09/15/24 08:27 Patient comments: no complaints, pain well controlled, incisional pain, tolerating diet and flatus present OB - PN: Obj Data Labs 09/15/24 05:30 Labs: Laboratory Results - last 24 hr 09/13/24 09/15/24 09/15/24 11:45 04:21 05:30 Hgb 6.6 L* D 7.0 L Hct 22.8 L 23.7 L Blood Type O Positive Antibody Screen Negative Crossmatch See Detail OB - PN A/P Plan day: 1 Plan: routine care Comments: anemia - to get blood, routine care Time Spent With Patient Time: Total time spent is greater than 50% in coordination of care (as documented) at patient's floor/unit and/or counseling patient: Exam 2 Const: General: comfortable, no acute distress and alert Resp: Effort & Inspection: normal respiratory effort Auscultation: no crackles, no rales and no rhonchi Cardio: Rate: regular rate Heart sounds: no click, no murmurs and no rubs GI: Inspection: non-distended GI Palp: No Tenderness to palpation present (GI) Auscultation: normal bowel sounds Other: Incision - CDI Extrem: General: normal to inspection, no pedal edema and no calf tenderness
[2024-09-15] MEDS: DOCUSATE SODIUM 100 MG CAPSULE PO ×2 (08:48→16:17)
[2024-09-15] MEDS: ACETAMINOPHEN 325 MG TABLET 650 MG PO ×2 (08:50→16:17)
[2024-09-15] MEDS: IBUPROFEN 600 MG TABLET PO ×2 (08:50→16:17)
[2024-09-15] MEDS: SODIUM CHLORIDE 0.9% IV 250 ML 30 ML IV CONT (08:54)
[2024-09-15 16:16] LABS: Hematocrit 27.2 % (37.0-47.0); Hemoglobin 8.8 g/dL (12.0-15.0); Immature Granulocyte Percent A 0.6 % (0-0.5); Lymphocytes Absolute Auto 2.52 K/mm3 (0.9-3.2); Mean Corpuscular HGB Conc 32.4 g/dl (32-36); Mean Corpuscular Hemoglobin 27.8 pg (26-34); Mean Corpuscular Volume 85.8 fl (80-100); Nucleated Red Blood Cells Absolute Auto 0.000 K/mm3 (0.0-0.012); Nucleated Red Blood Cells Perc 0.0 % (0.0-0.2); Platelet Count Result 194 k/mm3 (150-375); Red Blood Count 3.17 M/mm3 (4.2-5.4); White Blood Count 13.7 K/mm3 (4.5-10.0)
[2024-09-16 04:00] VITALS: BP 124/77; PULSE 94
[2024-09-16] MEDS: ACETAMINOPHEN 325 MG TABLET 650 MG PO (05:08)
[2024-09-16 08:15] VITALS: BP 135/89; PULSE 99; RESP 18; TEMP 37.2; O2SAT 100
[2024-09-16] MEDS: MULTIVIT/MIN/PREN/FOL AC/IRON TABLET 1 TAB PO (09:26)
--- NOTE | 2024-09-16 09:30 | PC.NURSE ---
Consulted with mother concerning needs and she shared her ability to independently latch infant optimally without pain. She has latch on tenderness that dissipates. Mother is feeding appropriately for growth of infant and understands stimulating infant to eat if needed. Infant has had appropriate feedings in the last 24 hours meets the outcomes for weight, output, blood sugar and jaundice at this time. Reinforced understanding of milk production, transition of milk, signs of adequate intake, transition of stool, responsive watching for feeding cues, burping and spit up, community resources, and when to call a provider using the resource of the feeding sheet along with the mom and baby guide. Mother voiced understanding of the information shared, is confident to continue effectively her infant at home, when to call for assistance, denies any additional assistance or education at this time. Reported to the Primary RN.
--- NOTE | 2024-09-16 10:38 | P.PNOB_ITS ---
OB - PN: Subj Subjective Date/time seen: 09/16/24 10:38 Interval history: PPD#2 s/p complicated by gestational hypertension Asymptomatic Bleeding minimal Feeling better after pRBC yesterday Voiding without issue Tolerating general diet Ready for discharge home OB - PN: Obj Data Labs 09/15/24 16:12 Labs: Laboratory Results - last 24 hr 09/13/24 09/15/24 11:45 16:12 WBC 13.7 H RBC 3.17 L Hgb 8.8 L Hct 27.2 L MCV 85.8 MCH 27.8 MCHC 32.4 RDW 15.1 H Plt Count 194 MPV 11.1 H Immature Gran % (Auto) 0.6 H Neut % (Auto) 73.7 H Lymph % (Auto) 18.4 [place] % (Auto) 5.1 Eos % (Auto) 1.5 Baso % (Auto) 0.7 Lymph # (Auto) 2.52 [place] # (Auto) 0.7 H Eos # (Auto) 0.2 Baso # (Auto) 0.1 Abs Immat Gran (auto) 0.08 H Absolute Neuts (auto) 10.1 H Absolute Nucleated RBC 0.000 Nucleated RBC % 0.0 Crossmatch See Detail OB - PN A/P Assessment and Plan (1) Gestational hypertension: Code(s): O13.9 - Gestational [-induced] hypertension without significant proteinuria, unspecified trimester Status: Acute Assessment and Plan: - asymptomatic - BP mild range - labs wnl - continue Procardia XL 30mg daily - 1 week BP check (2) (spontaneous vaginal delivery): Code(s): O80 - Encounter for full-term uncomplicated delivery Status: Acute Plan day: 2 Plan: routine care and discharge home Time Spent With Patient Time: Total time spent is greater than 50% in coordination of care (as documented) at patient's floor/unit and/or counseling patient: Review of Systems 2 Review of Systems: All systems reviewed & are unremarkable except as noted in HPI and below Exam 2 Const: General: comfortable and no acute distress O rientation/consciousness: patient oriented x3 Resp: Effort & Inspection: normal respiratory effort
[2024-09-16 12:14] VITALS: BP 117/76; PULSE 82; RESP 16; TEMP 37; O2SAT 98
--- NOTE | 2024-09-16 12:26 | PM.OBDSVD ---
DS: Admitting Diagnosis Discharge Date 09/16/24 Admitting Diagnosis gestational hypertension, growth restriction DS: Discharge Diagnosis Discharge Diagnosis (1) (spontaneous vaginal delivery): Code(s): O80 - Encounter for full-term uncomplicated delivery Status: Acute (2) Gestational hypertension: Code(s): O13.9 - Gestational [-induced] hypertension without significant proteinuria, unspecified trimester Status: Acute OB - DS: Summary OB Procedures : None OB Procedures Intrapartum: Spontaneous Vag Delivery OB Procedures: : Transfusion (x1u pRBC) Peripartum Data Laceration Description: Perineal - 2nd Degree Episiotomy description: None Time Spent with Patient Time attestation: Total time spent providing and/or coordinating discharge services: DS: Data Data Completed and Pending Labs on day of discharge: Labs from last 24 hours 09/15/24 16:12 WBC 13.7 H RBC 3.17 L Hgb 8.8 L Hct 27.2 L MCV 85.8 MCH 27.8 MCHC 32.4 RDW 15.1 H Plt Count 194 MPV 11.1 H Immature Gran % (Auto) 0.6 H Neut % (Auto) 73.7 H Lymph % (Auto) 18.4 [place] % (Auto) 5.1 Eos % (Auto) 1.5 Baso % (Auto) 0.7 Lymph # (Auto) 2.52 [place] # (Auto) 0.7 H Eos # (Auto) 0.2 Baso # (Auto) 0.1 Abs Immat Gran (auto) 0.08 H Absolute Neuts (auto) 10.1 H Absolute Nucleated RBC 0.000 Nucleated RBC % 0.0 Discharge Plan Discharge Attending physician on discharge: Felipe Machado Discharging Clinician: Felipe Machado Patient Disposition: Home Activity: may shower, as tolerated and pelvic rest Diet: as tolerated Patient Instructions: Antibiotic Form Patient Language: Gabonese Stand Alone Forms: General Discharge Information Follow-up/Referrals: Felipe Machado MD [Physician] - 1 Week Discharge Medications: New nifedipine [Procardia XL] 30 mg Tablet Extended Release 24hr 30 mg PO QAM Qty: 60 1RF ibuprofen 600 mg Tablet 600 mg PO Q6H PRN (Reason: Cramping) Qty: 30 0RF Continued escitalopram oxalate 5 mg tablet 5 mg PO DAILY One Daily 28800-440 mg-mcg-mg combo pack 1 pkg PO DAILY cholecalciferol (vitamin D3) 25 mcg (1,000 unit) capsule 25 mcg PO DAILY Discontinued aspirin 81 mg tablet,chewable 81 mg PO DAILY metformin 500 mg tablet 500 mg PO DAILY hydroxyzine HCl 25 mg tablet 25 mg PO QID PRN (Reason: nausea and vomiting) Date of admission: 09/13/24 11:31 Primary Care Provider: Maura Kee Admitting Provider: Felipe Machado Attending physician on admission: Felipe Machado Condition: Stable
[2024-09-17 08:32] VITALS: BP 138/83; PULSE 100; RESP 18; TEMP 37.1; O2SAT 100
== END 2024-09-16 13:55 | disposition home or self-care (01) | DRG 807 ==
LOC: ANHLDR 11:34 → ANHOB2 09-14 03:34
PROVIDERS: Advanced Practice Midwife; Admitting Provider Obstetrics & Gynecology; PCP Family Medicine; Visit Provider Obstetrics & Gynecology
DX: O13.4 Gestational [pregnancy-induced] hypertension without significant proteinuria, complicating childbirth (principal); Z37.0 Single live birth; Z3A.38 38 weeks gestation of pregnancy; O70.1 Second degree perineal laceration during delivery; O36.5930 Maternal care for other known or suspected poor fetal growth, third trimester, not applicable or unspecified
CPT/HCPCS: 36415; 36430; 85014; 85018; 85025; 86593; 86850; 86900; 86901; 86923; A9270; J2405; J2590; J2795; J7050; J7120; P9016